=== PATIENT | male | born 1940 | race Caucasian/White ===

== ENCOUNTER → 2016-07-20 | Outpatient (CLI) | payer OTHER ==
[~2016-07-20] MED LIST: ASPI81TA27 PO; DOXA1TAB50 PO; PRAV20TA3 OR
[2016-07-20 09:26] LABS: Urine RBC None Seen /hpf (0 - 3)
[2016-07-20 09:36] LABS: Basophils # (auto) 0 uL; Basophils % (auto) 0.6 % (0.0-2.0); Eosinophils # (auto) 0.1 uL; Eosinophils % (auto) 2.2 % (0.0-7.0); Lymphocytes # (auto) 0.7 uL; Lymphocytes % (auto) 16.4 % (10.0-50.0); Mean Corpuscular Hemoglobin 30.8 pg (28.0-32.0); Mean Corpuscular Hgb Conc. 31.8 g/dL (32.0-36.0); Mean Corpuscular Volume 96.8 fL (80.0-100.0); Mean Platelet Volume 8.9 fL (7.4-10.4); Monocytes # (auto) 0.4 uL; Monocytes % (auto) 10.2 % (0.0-12.0); Neutrophils # (auto) 2.9 uL; Neutrophils % (auto) 70.6 % (37.0-80.0); Platelet Count (auto) 159 10^3/uL (140-450); Red Cell Distribution Width 13.7 % (11.6-16.0); White Blood Cell 4.2 10^3/uL (4.4-10.8)
[2016-07-20 09:46] LABS: Urine Bilirubin Negative (Negative); Urine Blood Negative /uL (Negative); Urine Color Yellow (Yellow); Urine Glucose Normal (Normal); Urine Ketone Negative (Negative); Urine Nitrite Negative (Negative); Urine Urobilinogen Normal (Negative); Urine pH 7.5 (5.0-8.0)
[2016-07-20 09:55] LABS: Potassium 3.8 mmol/L (3.5-5.1)
[2016-07-20 10:05] LABS: Albumin 3.7 g/dL (3.4-5.0); BUN/Creatinine Ratio 21.1; Bilirubin, Total 0.6 mg/dL (0.2-1.0); Calcium 8.8 mg/dL (8.5-10.1); Total Protein 7.1 g/dL (6.4-8.2)
== END | disposition home or self-care (01) ==
LOC: LAB 08:50
PROVIDERS: ATTEND Internal Medicine
DX: E78.00 Pure hypercholesterolemia, unspecified (principal); I10 Essential (primary) hypertension; N40.0 Benign prostatic hyperplasia without lower urinary tract symptoms; Z00.00 Encounter for general adult medical examination without abnormal findings
CPT/HCPCS: 36415; 80053; 80061; 81001; 82270; 83036; 83615; 84153; 84443; 85025; 85652; 86141

== ENCOUNTER → 2016-12-26 | Outpatient (CLI) | payer OTHER ==
[2016-12-26 12:42] LABS: Albumin 3.7 g/dL (3.4-5.0); BUN/Creatinine Ratio 21.6; Bilirubin, Total 0.4 mg/dL (0.2-1.0); Calcium 8.9 mg/dL (8.5-10.1); Potassium 4.3 mmol/L (3.5-5.1); Total Protein 6.7 g/dL (6.4-8.2)
== END | disposition home or self-care (01) ==
LOC: LAB 11:30
PROVIDERS: ATTEND Internal Medicine
DX: I10 Essential (primary) hypertension (principal); E05.90 Thyrotoxicosis, unspecified without thyrotoxic crisis or storm
CPT/HCPCS: 36415; 80053; 84443

== ENCOUNTER → 2017-03-12 | Outpatient (CLI) | payer OTHER ==
[2017-03-12 09:43] LABS: Basophils # (auto) 0 uL; Basophils % (auto) 0.6 % (0.0-2.0); Eosinophils # (auto) 0.1 uL; Eosinophils % (auto) 2.3 % (0.0-7.0); Hematocrit 41.8 % (41.0-53.0); Lymphocytes # (auto) 0.7 uL; Lymphocytes % (auto) 19.2 % (10.0-50.0); Mean Corpuscular Hemoglobin 33.3 pg (28.0-32.0); Mean Corpuscular Hgb Conc. 33.5 g/dL (32.0-36.0); Mean Corpuscular Volume 99.2 fL (80.0-100.0); Mean Platelet Volume 8.6 fL (6.9-10.8); Monocytes # (auto) 0.4 uL; Monocytes % (auto) 11.2 % (0.0-12.0); Neutrophils # (auto) 2.5 uL; Neutrophils % (auto) 66.7 % (37.0-80.0); Nucleated Red Blood Cells % 0.2 %; Platelet Count (auto) 109 10^3/uL (140-450); Red Cell Distribution Width 13.8 % (11.8-14.3); White Blood Cell 3.7 10^3/uL (4.4-10.8)
[2017-03-12 10:13] LABS: Albumin 3.9 g/dL (3.4-5.0); Bilirubin, Total 0.4 mg/dL (0.2-1.0); Calcium 9.1 mg/dL (8.5-10.1); Potassium 3.6 mmol/L (3.5-5.1); Total Protein 7.3 g/dL (6.4-8.2)
== END | disposition home or self-care (01) ==
LOC: LAB 09:15
PROVIDERS: ATTEND Internal Medicine
DX: I10 Essential (primary) hypertension (principal); E78.2 Mixed hyperlipidemia; E03.9 Hypothyroidism, unspecified
CPT/HCPCS: 36415; 80053; 80061; 84443; 85025

== ENCOUNTER → 2017-04-02 | Outpatient (CLI) | payer OTHER ==
[~2017-04-02] MED LIST changes: +IOHEXOL 350 MG/ML 100ML IJ ONE
== END | disposition home or self-care (01) ==
LOC: LAB 08:55
PROVIDERS: ATTEND Surgery
DX: I73.9 Peripheral vascular disease, unspecified (principal)
CPT/HCPCS: 36415; 82565; 84520; Q9967

== ENCOUNTER → 2017-04-02 | Outpatient (CLI) | payer OTHER ==
[~2017-04-02] MED LIST changes: -IOHEXOL 350 MG/ML 100ML IJ ONE
== END | disposition home or self-care (01) ==
LOC: CT 09:22
PROVIDERS: ATTEND Surgery
DX: I70.0 Atherosclerosis of aorta (principal); I25.10 Atherosclerotic heart disease of native coronary artery without angina pectoris; K55.1 Chronic vascular disorders of intestine; K57.30 Diverticulosis of large intestine without perforation or abscess without bleeding; N28.1 Cyst of kidney, acquired
CPT/HCPCS: 75635; 93925

== ENCOUNTER → 2017-08-29 | Outpatient (CLI) | payer OTHER ==
[2017-08-29 14:01] LABS: INR 0.95 (0.9-1.15); Prothrombin Time 10.4 sec (9.37-12.3)
== END | disposition home or self-care (01) ==
LOC: LAB 13:26
PROVIDERS: ATTEND Urology
DX: N40.0 Benign prostatic hyperplasia without lower urinary tract symptoms (principal)
CPT/HCPCS: 36415; 84520; 85610

== ENCOUNTER 2017-09-05 06:12 | Day surgery (SDC) | payer OTHER ==
[2017-09-02 11:26] LABS: Basophils # (auto) 0.1 uL; Basophils % (auto) 1.5 % (0.0-2.0); Eosinophils # (auto) 0.1 uL; Eosinophils % (auto) 1.8 % (0.0-7.0); Hematocrit 41.9 % (41.0-53.0); Lymphocytes # (auto) 0.6 uL; Lymphocytes % (auto) 15.3 % (10.0-50.0); Mean Corpuscular Hemoglobin 33.1 pg (28.0-32.0); Mean Corpuscular Hgb Conc. 33.5 g/dL (32.0-36.0); Mean Corpuscular Volume 98.9 fL (80.0-100.0); Monocytes # (auto) 0.5 uL; Monocytes % (auto) 13.6 % (0.0-12.0); Neutrophils # (auto) 2.5 uL; Neutrophils % (auto) 67.8 % (37.0-80.0); Nucleated Red Blood Cells % 0.1 %; Platelet Count (auto) 106 10^3/uL (140-450); Red Blood Cells 4.24 10^6/uL (4.5-5.90); Red Cell Distribution Width 14.4 % (11.8-14.3); White Blood Cell 3.7 10^3/uL (4.4-10.8)
[2017-09-02 11:30] LABS: Urine Bacteria NONE SEEN /hpf (None Seen); Urine Blood Negative /uL (Negative); Urine WBC <1 /hpf (0 - 3)
[2017-09-02 11:32] LABS: Albumin 3.9 g/dL (3.4-5.0); BUN/Creatinine Ratio 26.1; Bilirubin, Total 0.5 mg/dL (0.2-1.0); Calcium 8.8 mg/dL (8.5-10.1); Total Protein 7.4 g/dL (6.4-8.2)
[2017-09-02 11:42] LABS: INR 0.96 (0.9-1.15); Partial Thromboplastin Time 24.9 sec (22.64-33.71); Prothrombin Time 10.5 sec (9.37-12.3)
[~2017-09-05] VITALS: Ht 182.9 cm; Wt 77.1 kg
[2017-09-05] MEDS ORDERED: ceFAZolin 1GM/50ML 50 ML IV ONE (06:31)
[2017-09-05] MEDS ORDERED: SUCCINYLCHOLINE CHLORIDE 20 MG/ML 10ML VIAL IV ONE (07:23)
[2017-09-05] MEDS ORDERED: LIDOCAINE 1% HCL (LOCAL ANESTH.) INJ 20ML MDV ONE (07:23)
[2017-09-05] MEDS ORDERED: MIDAZOLAM HCL 1MG/1ML-2 ML VIAL ONE (07:26)
[2017-09-05] MEDS ORDERED: PROPOFOL 10 MG/ML 20 ML IV ONE (07:28)
[2017-09-05] MEDS ORDERED: LIDOCAINE HCL 2% TOP JELLY 5ML TOP ONE (07:30)
[2017-09-05] MEDS ORDERED: fentaNYL CITRATE 100 MCG/2 ML VL ONE (07:48)
[2017-09-05] MEDS ORDERED: ONDANSETRON HCL 4 MG/2 ML VIAL IV ONE (08:00)
[2017-09-05] MEDS ORDERED: NALOXONE HCL 0.4 MG/ML VIAL IV PRN (08:00)
[2017-09-05] MEDS: MORPHINE SULFATE 4 MG/ML SYR/VIAL IV PRN ×2 (08:47→09:14)
[2017-09-05 09:43] VITALS: BP 157/83
== END 2017-09-05 10:02 | disposition home or self-care (01) ==
LOC: SUR 06:12
PROVIDERS: ATTEND Urology
DX: N32.0 Bladder-neck obstruction (principal); M19.90 Unspecified osteoarthritis, unspecified site; J44.9 Chronic obstructive pulmonary disease, unspecified; E78.00 Pure hypercholesterolemia, unspecified; E03.9 Hypothyroidism, unspecified; Z87.891 Personal history of nicotine dependence
CPT/HCPCS: 36415; 52640; 80053; 81001; 85025; 85610; 85730; J0330; J0690; J2001; J2250; J2270; J2704; J3010

== ENCOUNTER → 2017-09-19 | Outpatient (CLI) | payer OTHER | END | disposition home or self-care (01) | LOC: LAB 16:19 | PROVIDERS: ATTEND Urology | DX: R33.9 Retention of urine, unspecified (principal); J44.9 Chronic obstructive pulmonary disease, unspecified; M19.90 Unspecified osteoarthritis, unspecified site; E78.00 Pure hypercholesterolemia, unspecified; I10 Essential (primary) hypertension; Z87.891 Personal history of nicotine dependence | CPT/HCPCS: 87086 ==

== ENCOUNTER → 2017-11-06 | Outpatient (CLI) | payer OTHER ==
[2017-11-06 08:35] LABS: Basophils # (auto) 0 uL; Basophils % (auto) 0.9 % (0.0-2.0); Eosinophils # (auto) 0.2 uL; Eosinophils % (auto) 4.4 % (0.0-7.0); Hematocrit 43.1 % (41.0-53.0); Hemoglobin 14.5 g/dL (13.5-17.5); Lymphocytes # (auto) 0.7 uL; Lymphocytes % (auto) 17.3 % (10.0-50.0); Mean Corpuscular Hgb Conc. 33.7 g/dL (32.0-36.0); Monocytes # (auto) 0.4 uL; Monocytes % (auto) 11.4 % (0.0-12.0); Neutrophils # (auto) 2.6 uL; Nucleated Red Blood Cells % 0.1 %; Platelet Count (auto) 110 10^3/uL (140-450); White Blood Cell 3.9 10^3/uL (4.4-10.8)
[2017-11-06 09:44] LABS: Albumin 3.8 g/dL (3.4-5.0); BUN/Creatinine Ratio 25.3; Bilirubin, Total 0.3 mg/dL (0.2-1.0); Calcium 9.3 mg/dL (8.5-10.1); Total Protein 7.3 g/dL (6.4-8.2)
== END | disposition home or self-care (01) ==
LOC: LAB 08:07
PROVIDERS: ATTEND Internal Medicine
DX: E03.9 Hypothyroidism, unspecified (principal); E78.5 Hyperlipidemia, unspecified; E78.00 Pure hypercholesterolemia, unspecified; J44.9 Chronic obstructive pulmonary disease, unspecified; Z87.891 Personal history of nicotine dependence
CPT/HCPCS: 36415; 80053; 80061; 82270; 84153; 84154; 84443; 85025

== ENCOUNTER → 2018-04-18 | Outpatient (CLI) | payer OTHER, MEDICARE | END | disposition home or self-care (01) | LOC: LAB 12:10 | DX: N39.0 Urinary tract infection, site not specified (principal) | CPT/HCPCS: 87086 ==

== ENCOUNTER → 2018-08-08 | Outpatient (CLI) | payer OTHER ==
[2018-08-08 08:43] LABS: Basophils # (auto) 0 uL; Basophils % (auto) 0.8 % (0.0-2.0); Eosinophils # (auto) 0.1 uL; Eosinophils % (auto) 1.9 % (0.0-7.0); Hemoglobin 14.4 g/dL (13.5-17.5); Lymphocytes # (auto) 0.6 uL; Lymphocytes % (auto) 14.1 % (10.0-50.0); Mean Corpuscular Hemoglobin 32.8 pg (28.0-32.0); Mean Corpuscular Hgb Conc. 33.5 g/dL (32.0-36.0); Mean Corpuscular Volume 97.9 fL (80.0-100.0); Monocytes # (auto) 0.5 uL; Monocytes % (auto) 9.9 % (0.0-12.0); Neutrophils # (auto) 3.4 uL; Neutrophils % (auto) 73.3 % (37.0-80.0); Nucleated Red Blood Cells % 0.1 %; Platelet Count (auto) 106 10^3/uL (140-450); Red Cell Distribution Width 13.9 % (11.8-14.3); White Blood Cell 4.6 10^3/uL (4.4-10.8)
[2018-08-08 09:24] LABS: Potassium 3.9 mmol/L (3.5-5.1)
[2018-08-08 09:41] LABS: Albumin 3.7 g/dL (3.4-5.0); BUN/Creatinine Ratio 30.6; Bilirubin, Total 0.4 mg/dL (0.2-1.0); Calcium 8.8 mg/dL (8.5-10.1); Total Protein 7.1 g/dL (6.4-8.2)
== END | disposition home or self-care (01) ==
LOC: LAB 08:20
PROVIDERS: ATTEND Internal Medicine
DX: D69.6 Thrombocytopenia, unspecified (principal); I70.0 Atherosclerosis of aorta; E03.9 Hypothyroidism, unspecified; J44.9 Chronic obstructive pulmonary disease, unspecified
CPT/HCPCS: 36415; 80053; 84443; 85025

== ENCOUNTER → 2018-09-30 | Outpatient (CLI) | payer OTHER | END | disposition home or self-care (01) | LOC: LAB 15:00 | PROVIDERS: ATTEND Physician Assistant | DX: L57.0 Actinic keratosis (principal) ==

== ENCOUNTER → 2018-11-14 | Outpatient (CLI) | payer OTHER ==
[2018-11-14 09:22] LABS: Basophils # (auto) 0 uL; Basophils % (auto) 1.1 % (0.0-2.0); Eosinophils # (auto) 0.1 uL; Eosinophils % (auto) 3.3 % (0.0-7.0); Hematocrit 42.9 % (41.0-53.0); Hemoglobin 14.5 g/dL (13.5-17.5); Lymphocytes # (auto) 0.6 uL; Lymphocytes % (auto) 19.3 % (10.0-50.0); Mean Corpuscular Hemoglobin 32.9 pg (28.0-32.0); Mean Corpuscular Hgb Conc. 33.8 g/dL (32.0-36.0); Mean Corpuscular Volume 97.2 fL (80.0-100.0); Monocytes # (auto) 0.4 uL; Monocytes % (auto) 10.9 % (0.0-12.0); Neutrophils # (auto) 2.1 uL; Neutrophils % (auto) 65.4 % (37.0-80.0); Nucleated Red Blood Cells % 0.1 %; Platelet Count (auto) 107 10^3/uL (140-450); Red Blood Cells 4.41 10^6/uL (4.5-5.90); Red Cell Distribution Width 14.1 % (11.8-14.3); White Blood Cell 3.3 10^3/uL (4.4-10.8)
[2018-11-14 09:47] LABS: Albumin 3.8 g/dL (3.4-5.0); BUN/Creatinine Ratio 19.7; Calcium 8.9 mg/dL (8.5-10.1)
[2018-11-14 09:51] LABS: Bilirubin, Total 0.5 mg/dL (0.2-1.0)
== END | disposition home or self-care (01) ==
LOC: LAB 09:03
PROVIDERS: ATTEND Internal Medicine
DX: N40.0 Benign prostatic hyperplasia without lower urinary tract symptoms (principal); E03.9 Hypothyroidism, unspecified; E78.5 Hyperlipidemia, unspecified; I70.0 Atherosclerosis of aorta
CPT/HCPCS: 36415; 80053; 80061; 82270; 84153; 84443; 85025

== ENCOUNTER → 2019-03-04 | Outpatient (CLI) | payer OTHER ==
[~2019-03-04] VITALS: Ht 182.9 cm; Wt 74.8 kg
[~2019-03-04] MED LIST changes: +ADENOSINE 63 MG in GIVE UN-DILUTED 0 ML IV STA; +ASPI-404 PO; -ASPI81TA27 PO
== END | disposition home or self-care (01) ==
LOC: XY 09:11
PROVIDERS: ATTEND Internal Medicine
DX: I10 Essential (primary) hypertension (principal); E03.9 Hypothyroidism, unspecified; J44.9 Chronic obstructive pulmonary disease, unspecified; R07.9 Chest pain, unspecified; E78.5 Hyperlipidemia, unspecified
CPT/HCPCS: 78452; 93017; A9500; J0153

== ENCOUNTER → 2019-03-05 | Outpatient (CLI) | payer OTHER ==
[~2019-03-05] MED LIST changes: -ADENOSINE 63 MG in GIVE UN-DILUTED 0 ML IV STA
== END | disposition home or self-care (01) ==
LOC: XYW 08:17
PROVIDERS: ATTEND Internal Medicine
DX: I11.9 Hypertensive heart disease without heart failure (principal); E78.5 Hyperlipidemia, unspecified; E03.9 Hypothyroidism, unspecified
CPT/HCPCS: 93306

== ENCOUNTER → 2019-04-10 | Outpatient (CLI) | payer OTHER | END | disposition home or self-care (01) | LOC: LAB 10:05 | PROVIDERS: ATTEND Internal Medicine | DX: E03.9 Hypothyroidism, unspecified (principal) | CPT/HCPCS: 36415; 84443 ==

== ENCOUNTER 2019-04-29 09:54 | Day surgery (SDC) | payer OTHER ==
[2019-04-28 12:54] LABS: Basophils # (auto) 0 uL; Basophils % (auto) 1.1 % (0.0-2.0); Eosinophils # (auto) 0.1 uL; Eosinophils % (auto) 2.3 % (0.0-7.0); Hematocrit 42.4 % (41.0-53.0); Hemoglobin 14.2 g/dL (13.5-17.5); Lymphocytes # (auto) 0.6 uL; Lymphocytes % (auto) 14.8 % (10.0-50.0); Mean Corpuscular Hemoglobin 32.9 pg (28.0-32.0); Mean Corpuscular Hgb Conc. 33.5 g/dL (32.0-36.0); Mean Corpuscular Volume 98.1 fL (80.0-100.0); Monocytes # (auto) 0.4 uL; Monocytes % (auto) 10.1 % (0.0-12.0); Neutrophils # (auto) 2.9 uL; Neutrophils % (auto) 71.7 % (37.0-80.0); Platelet Count (auto) 91 10^3/uL (140-450); Red Blood Cells 4.32 10^6/uL (4.5-5.90); Red Cell Distribution Width 14.3 % (11.8-14.3); White Blood Cell 4.1 10^3/uL (4.4-10.8)
[2019-04-28 13:09] LABS: INR 0.94 (0.9-1.15); Partial Thromboplastin Time 24.8 sec (23.64-32.05)
[2019-04-28 13:34] LABS: Potassium 4.1 mmol/L (3.5-5.1)
[2019-04-28 13:42] LABS: Albumin 3.9 g/dL (3.4-5.0); BUN/Creatinine Ratio 28.4; Bilirubin, Total 0.4 mg/dL (0.2-1.0); Calcium 9.3 mg/dL (8.5-10.1); Total Protein 7.1 g/dL (6.4-8.2)
[~2019-04-29] VITALS: Ht 182.9 cm; Wt 75.7 kg
[~2019-04-29 09:54] MED LIST changes: +FURO40TA4 PO; +LEVO25TA6 PO; +POTA-180 PO
[2019-04-29] MEDS ORDERED: ANGIOMAX 250 MG VIAL IV ONE (12:10)
[2019-04-29] MEDS ORDERED: fentaNYL CITRATE 100 MCG/2 ML VL ONE (12:10)
[2019-04-29] MEDS ORDERED: MIDAZOLAM HCL 1MG/1ML-2 ML VIAL ONE (12:11)
[2019-04-29] MEDS ORDERED: SODIUM CHL 0.9% 0 ML ONE (12:12)
[2019-04-29] MEDS ORDERED: VERAPAMIL 2.5MG/ML INJ 2ML VIAL IV ONE (12:15)
[2019-04-29] MEDS ORDERED: HEPARIN SODIUM (PORCINE) 5000 UNITS/ML 1ML VIAL ONE (12:17)
== END 2019-04-29 15:05 | disposition home or self-care (01) ==
LOC: CATH 09:54
PROVIDERS: ATTEND Internal Medicine
DX: I25.119 Atherosclerotic heart disease of native coronary artery with unspecified angina pectoris (principal); E78.00 Pure hypercholesterolemia, unspecified; E03.9 Hypothyroidism, unspecified; I10 Essential (primary) hypertension; J44.9 Chronic obstructive pulmonary disease, unspecified; I87.2 Venous insufficiency (chronic) (peripheral); E78.5 Hyperlipidemia, unspecified; Z79.899 Other long term (current) drug therapy; Z87.891 Personal history of nicotine dependence; Z79.82 Long term (current) use of aspirin
CPT/HCPCS: 36415; 80053; 85025; 85610; 85730; 93458; C1769; C1887; J1644; J2250; J3010; J7030; 99152

== ENCOUNTER → 2019-05-22 | Outpatient (CLI) | payer OTHER ==
[2019-05-22 12:25] LABS: Free T4 (Free Thyroxine) 1.08 ng/dL (0.89-1.76); T3 Total 0.84 ng/mL (0.60-1.81)
== END | disposition home or self-care (01) ==
LOC: LAB 11:10
PROVIDERS: ATTEND Physician Assistant
DX: E03.9 Hypothyroidism, unspecified (principal); R53.83 Other fatigue
CPT/HCPCS: 36415; 84403; 84439; 84480

== ENCOUNTER → 2019-07-30 | Outpatient (CLI) | payer OTHER | END | disposition home or self-care (01) | LOC: XY 10:06 | PROVIDERS: ATTEND Internal Medicine | DX: I65.23 Occlusion and stenosis of bilateral carotid arteries (principal); I70.203 Unspecified atherosclerosis of native arteries of extremities, bilateral legs | CPT/HCPCS: 93886; 93925 ==

== ENCOUNTER → 2019-11-05 | Outpatient (CLI) | payer OTHER ==
[2019-11-05 09:03] LABS: Basophils # (auto) 0 10 ^3/uL (0-0.2); Basophils % (auto) 0.8 % (0.0-2.0); Eosinophils # (auto) 0.1 10 ^3/uL (0-0.8); Eosinophils % (auto) 2.6 % (0.0-7.0); Hematocrit 43.3 % (41.0-53.0); Hemoglobin 14.5 g/dL (13.5-17.5); Lymphocytes # (auto) 0.8 10 ^3/uL (0.4-5.4); Lymphocytes % (auto) 20.8 % (10.0-50.0); Mean Corpuscular Hemoglobin 32.9 pg (28.0-32.0); Mean Corpuscular Hgb Conc. 33.5 g/dL (32.0-36.0); Mean Corpuscular Volume 98.2 fL (80.0-100.0); Monocytes # (auto) 0.4 10 ^3/uL (0-1.3); Monocytes % (auto) 10.5 % (0.0-12.0); Neutrophils # (auto) 2.5 10 ^3/uL (1.6-8.6); Neutrophils % (auto) 65.3 % (37.0-80.0); Nucleated Red Blood Cells % 0.1 %; Platelet Count (auto) 102 10^3/uL (140-450); Red Blood Cells 4.41 10^6/uL (4.5-5.90); Red Cell Distribution Width 13.9 % (11.8-14.3); White Blood Cell 3.9 10^3/uL (4.4-10.8)
[2019-11-05 09:39] LABS: Albumin 3.7 g/dL (3.4-5.0); Potassium 3.9 mmol/L (3.5-5.1)
[2019-11-05 09:44] LABS: Free T4 (Free Thyroxine) 1.16 ng/dL (0.89-1.76); Prostate Specific Antigen 2.23 ng/mL (0.0-4.0)
[2019-11-05 09:45] LABS: T3 Total 0.65 ng/mL (0.60-1.81)
[2019-11-05 09:46] LABS: BUN/Creatinine Ratio 25.3; Bilirubin, Total 0.6 mg/dL (0.2-1.0); Calcium 8.9 mg/dL (8.5-10.1); Total Protein 7.2 g/dL (6.4-8.2)
== END | disposition home or self-care (01) ==
LOC: LAB 08:37
PROVIDERS: ATTEND Physician Assistant
DX: I73.9 Peripheral vascular disease, unspecified (principal); I10 Essential (primary) hypertension; J44.9 Chronic obstructive pulmonary disease, unspecified; N40.1 Benign prostatic hyperplasia with lower urinary tract symptoms; E03.9 Hypothyroidism, unspecified
CPT/HCPCS: 36415; 80053; 80061; 84153; 84439; 84443; 84480; 85025

== ENCOUNTER → 2020-04-07 | Outpatient (CLI) | payer OTHER ==
[~2020-04-07] MED LIST changes: -ASPI-404 PO; +ASPI-543 PO
[2020-04-07 10:47] LABS: Basophils # (auto) 0 10 ^3/uL (0-0.2); Basophils % (auto) 0.9 % (0.0-2.0); Eosinophils # (auto) 0.1 10 ^3/uL (0-0.8); Eosinophils % (auto) 1.7 % (0.0-7.0); Hematocrit 44.6 % (41.0-53.0); Hemoglobin 15.2 g/dL (13.5-17.5); Lymphocytes # (auto) 0.5 10 ^3/uL (0.4-5.4); Lymphocytes % (auto) 18.1 % (10.0-50.0); Mean Corpuscular Hemoglobin 33.8 pg (28.0-32.0); Mean Corpuscular Hgb Conc. 34.1 g/dL (32.0-36.0); Mean Corpuscular Volume 99.3 fL (80.0-100.0); Monocytes # (auto) 0.3 10 ^3/uL (0-1.3); Monocytes % (auto) 10.7 % (0.0-12.0); Neutrophils # (auto) 2.1 10 ^3/uL (1.6-8.6); Neutrophils % (auto) 68.6 % (37.0-80.0); Nucleated Red Blood Cells % 0.1 %; Platelet Count (auto) 126 10^3/uL (140-450); Red Blood Cells 4.49 10^6/uL (4.5-5.90); Red Cell Distribution Width 14.4 % (11.8-14.3)
[2020-04-07 10:55] LABS: INR 0.95 (0.9-1.15); Partial Thromboplastin Time 23.4 sec (23.0-31.2)
[2020-04-07 11:05] LABS: Albumin 4.1 g/dL (3.4-5.0); Calcium 9.6 mg/dL (8.5-10.1); Potassium 3.9 mmol/L (3.5-5.1)
[2020-04-07 11:10] LABS: BUN/Creatinine Ratio 27.2; Bilirubin, Total 0.4 mg/dL (0.2-1.0); Total Protein 7.4 g/dL (6.4-8.2)
[2020-04-07 11:22] LABS: % Iron Saturation 29.8 % (20-55)
[2020-04-07 11:24] LABS: Ferritin 31.4 ng/mL (10-322)
[2020-04-07 11:25] LABS: Folate (Folic Acid) > 24.00 ng/mL (5.38-24)
[2020-04-07 13:51] LABS: Hepatitis B Surface Antigen Negative (Negative)
[2020-04-07 13:54] LABS: Hepatitis B Surface Antibody Negative
[2020-04-07 13:57] LABS: Hepatitis C Antibody Negative (Negative)
== END | disposition home or self-care (01) ==
LOC: LAB 10:10
PROVIDERS: ATTEND Internal Medicine
DX: D69.6 Thrombocytopenia, unspecified (principal)
CPT/HCPCS: 36415; 80053; 82607; 82728; 82746; 83540; 83550; 83615; 84311; 85025; 85610; 85613; 85670; 85705; 85730; 85732; 86038; 86706; 86803; 87340

== ENCOUNTER → 2020-08-19 | Outpatient (CLI) | payer OTHER ==
[2020-08-19 08:50] LABS: Basophils # (auto) 0 10 ^3/uL (0-0.2); Eosinophils # (auto) 0.2 10 ^3/uL (0-0.8); Eosinophils % (auto) 3.4 % (0.0-7.0); Hematocrit 40.5 % (41.0-53.0); Hemoglobin 13.7 g/dL (13.5-17.5); Lymphocytes # (auto) 0.7 10 ^3/uL (0.4-5.4); Lymphocytes % (auto) 14.3 % (10.0-50.0); Mean Corpuscular Hemoglobin 33.3 pg (28.0-32.0); Mean Corpuscular Hgb Conc. 33.9 g/dL (32.0-36.0); Mean Corpuscular Volume 98.2 fL (80.0-100.0); Monocytes # (auto) 0.5 10 ^3/uL (0-1.3); Monocytes % (auto) 10.6 % (0.0-12.0); Neutrophils # (auto) 3.2 10 ^3/uL (1.6-8.6); Neutrophils % (auto) 70.7 % (37.0-80.0); Nucleated Red Blood Cells % 0.1 %; Red Blood Cells 4.12 10^6/uL (4.5-5.90); White Blood Cell 4.6 10^3/uL (4.4-10.8)
[2020-08-19 09:17] LABS: Platelet Count (auto) 116 10^3/uL (140-450)
[2020-08-19 09:28] LABS: Albumin 3.4 g/dL (3.4-5.0); Bilirubin, Total 0.4 mg/dL (0.2-1.0); Calcium 9.5 mg/dL (8.5-10.1); Total Protein 7.2 g/dL (6.4-8.2)
== END | disposition home or self-care (01) ==
LOC: LAB 08:09
PROVIDERS: ATTEND Physician Assistant
DX: N40.1 Benign prostatic hyperplasia with lower urinary tract symptoms (principal); I73.9 Peripheral vascular disease, unspecified; D69.6 Thrombocytopenia, unspecified; E03.9 Hypothyroidism, unspecified
CPT/HCPCS: 36415; 80053; 80061; 84153; 84443; 85025

== ENCOUNTER 2020-09-12 10:01 | Emergency (ER) | payer OTHER ==
[~2020-09-12] VITALS: Ht 182.9 cm; Wt 77.1 kg
[2020-09-12] MEDS ORDERED: SODIUM CHLORIDE 0.9% 1,000 ML IV ONE (10:30)
[2020-09-12 10:36] LABS: Basophils # (auto) 0 10 ^3/uL (0-0.2); Basophils % (auto) 0.1 % (0.0-2.0); Eosinophils # (auto) 0 10 ^3/uL (0-0.8); Hematocrit 40.9 % (41.0-53.0); Hemoglobin 13.9 g/dL (13.5-17.5); Lymphocytes # (auto) 0.5 10 ^3/uL (0.4-5.4); Lymphocytes % (auto) 8.2 % (10.0-50.0); Mean Corpuscular Hemoglobin 33.3 pg (28.0-32.0); Mean Corpuscular Hgb Conc. 33.9 g/dL (32.0-36.0); Mean Corpuscular Volume 98.2 fL (80.0-100.0); Monocytes # (auto) 0.7 10 ^3/uL (0-1.3); Monocytes % (auto) 12.1 % (0.0-12.0); Neutrophils # (auto) 4.9 10 ^3/uL (1.6-8.6); Neutrophils % (auto) 79.6 % (37.0-80.0); Nucleated Red Blood Cells % 0.1 %; Platelet Count (auto) 107 10^3/uL (140-450); Red Blood Cells 4.17 10^6/uL (4.5-5.90); Red Cell Distribution Width 13.7 % (11.8-14.3); White Blood Cell 6.1 10^3/uL (4.4-10.8)
[2020-09-12 11:09] LABS: Urine WBC None Seen /hpf (0 - 3)
[2020-09-12 11:31] LABS: Urine Bacteria FEW /hpf (None Seen); Urine Blood Negative /uL (Negative); Urine Mucus FEW (None Seen); Urine Specific Gravity 1.011 (1.001-1.035)
[2020-09-12 11:35] VITALS: BP 168/121
[2020-09-12 12:04] LABS: Albumin 3.6 g/dL (3.4-5.0); Anion Gap 8 (5-15); Blood Urea Nitrogen 27 mg/dL (7-18); Calcium 8.9 mg/dL (8.5-10.1); Carbon Dioxide 30 mmol/L (21-32); Chloride 102 mmol/L (98-107); Glucose 93 mg/dL (74-106); Lipase 63 U/L (73-393); Potassium 4.5 mmol/L (3.5-5.1); Sodium 140 mmol/L (136-145)
[2020-09-12 12:10] LABS: Alanine Aminotransferase 22 U/L (16-61); Alkaline Phosphatase 46 U/L (45-117); Aspartate Aminotransferase 18 U/L (15-37); BUN/Creatinine Ratio 38.6; Bilirubin, Total 0.3 mg/dL (0.2-1.0); GFR African American 139 mL/min; GFR Non-African American 115 mL/min
== END 2020-09-12 12:25 | disposition home or self-care (01) ==
LOC: ER 10:01
DX: R10.32 Left lower quadrant pain (principal); E78.5 Hyperlipidemia, unspecified; Z90.49 Acquired absence of other specified parts of digestive tract; Z79.82 Long term (current) use of aspirin; Z79.899 Other long term (current) drug therapy
CPT/HCPCS: 36415; 74176; 80053; 81001; 83690; 84484; 85025; 93005

== ENCOUNTER → 2020-09-28 | Outpatient (CLI) | payer OTHER ==
[2020-09-28 12:09] LABS: Basophils # (auto) 0 10 ^3/uL (0-0.2); Basophils % (auto) 0.7 % (0.0-2.0); Eosinophils # (auto) 0.1 10 ^3/uL (0-0.8); Eosinophils % (auto) 1.7 % (0.0-7.0); Hematocrit 43.7 % (41.0-53.0); Hemoglobin 14.7 g/dL (13.5-17.5); Lymphocytes # (auto) 0.6 10 ^3/uL (0.4-5.4); Lymphocytes % (auto) 12.2 % (10.0-50.0); Mean Corpuscular Hemoglobin 33.2 pg (28.0-32.0); Mean Corpuscular Hgb Conc. 33.6 g/dL (32.0-36.0); Mean Corpuscular Volume 98.8 fL (80.0-100.0); Monocytes # (auto) 0.6 10 ^3/uL (0-1.3); Monocytes % (auto) 12.1 % (0.0-12.0); Neutrophils # (auto) 3.6 10 ^3/uL (1.6-8.6); Neutrophils % (auto) 73.3 % (37.0-80.0); Nucleated Red Blood Cells % 0.1 %; Platelet Count (auto) 88 10^3/uL (140-450); Red Blood Cells 4.42 10^6/uL (4.5-5.90); Red Cell Distribution Width 14.5 % (11.8-14.3); White Blood Cell 4.9 10^3/uL (4.4-10.8)
[2020-09-28 12:50] LABS: Albumin 3.5 g/dL (3.4-5.0); Calcium 9.2 mg/dL (8.5-10.1); Potassium 4.5 mmol/L (3.5-5.1)
[2020-09-28 12:55] LABS: BUN/Creatinine Ratio 30.8; Bilirubin, Total 0.5 mg/dL (0.2-1.0); Total Protein 6.8 g/dL (6.4-8.2)
== END | disposition home or self-care (01) ==
LOC: LAB 11:55
PROVIDERS: ATTEND Internal Medicine
DX: D69.6 Thrombocytopenia, unspecified (principal)
CPT/HCPCS: 36415; 80053; 82274; 83615; 85025

== ENCOUNTER → 2020-11-29 | Outpatient (CLI) | payer OTHER, MEDICARE | END | disposition home or self-care (01) | LOC: XY 09:41 | PROVIDERS: ATTEND Nurse Practitioner Acute Care | DX: I73.9 Peripheral vascular disease, unspecified (principal) | CPT/HCPCS: 93925 ==

== ENCOUNTER → 2020-12-23 | Outpatient (CLI) | payer OTHER | END | disposition home or self-care (01) | LOC: XYW 10:07 | PROVIDERS: ATTEND Internal Medicine | DX: I35.1 Nonrheumatic aortic (valve) insufficiency (principal); R07.9 Chest pain, unspecified | CPT/HCPCS: 93306 ==

== ENCOUNTER → 2021-02-09 | Outpatient (CLI) | payer OTHER ==
[2021-02-09 10:57] LABS: Basophils # (auto) 0 10 ^3/uL (0-0.2); Eosinophils # (auto) 0.1 10 ^3/uL (0-0.8); Lymphocytes # (auto) 0.7 10 ^3/uL (0.4-5.4); Monocytes # (auto) 0.5 10 ^3/uL (0-1.3); Neutrophils # (auto) 1.9 10 ^3/uL (1.6-8.6); Nucleated Red Blood Cells % 0.1 %; White Blood Cell 3.2 10^3/uL (4.4-10.8)
[2021-02-09 11:00] LABS: Hematocrit 40.5 % (41.0-53.0); Hemoglobin 14.4 g/dL (13.5-17.5); Lymphocytes % (auto) 22.7 % (10.0-50.0); Mean Corpuscular Hemoglobin 34.7 pg (28.0-32.0); Mean Corpuscular Hgb Conc. 35.6 g/dL (32.0-36.0); Mean Corpuscular Volume 97.3 fL (80.0-100.0); Monocytes % (auto) 15.2 % (0.0-12.0); Neutrophils % (auto) 59.1 % (37.0-80.0); Red Blood Cells 4.16 10^6/uL (4.5-5.90)
== END | disposition home or self-care (01) ==
LOC: LAB 10:43
PROVIDERS: ATTEND Internal Medicine
DX: D69.6 Thrombocytopenia, unspecified (principal); E78.5 Hyperlipidemia, unspecified; E30.9 Disorder of puberty, unspecified
CPT/HCPCS: 36415; 84443; 85025

== ENCOUNTER 2021-05-22 10:22 | Inpatient (IN) | payer OTHER ==
[~2021-05-22] VITALS: Ht 182.9 cm; Wt 79.4 kg
[2021-05-22] MEDS ORDERED: SODIUM CHLORIDE 0.9% 500 ML IV ONE (11:15)
[2021-05-22 12:29] LABS: Basophils # (auto) 0 10 ^3/uL (0-0.2); Basophils % (auto) 0.6 % (0.0-2.0); Eosinophils # (auto) 0.1 10 ^3/uL (0-0.8); Hematocrit 40.8 % (41.0-53.0); Hemoglobin 13.4 g/dL (13.5-17.5); Lymphocytes # (auto) 0.5 10 ^3/uL (0.4-5.4); Lymphocytes % (auto) 9.9 % (10.0-50.0); Mean Corpuscular Hemoglobin 32.8 pg (28.0-32.0); Mean Corpuscular Hgb Conc. 32.9 g/dL (32.0-36.0); Mean Corpuscular Volume 99.5 fL (80.0-100.0); Monocytes # (auto) 0.7 10 ^3/uL (0-1.3); Monocytes % (auto) 14.2 % (0.0-12.0); Neutrophils # (auto) 3.8 10 ^3/uL (1.6-8.6); Neutrophils % (auto) 74.3 % (37.0-80.0); Nucleated Red Blood Cells % 0.1 %; Red Cell Distribution Width 13.9 % (11.8-14.3); White Blood Cell 5.1 10^3/uL (4.4-10.8)
[2021-05-22 12:46] LABS: Albumin 3.5 g/dL (3.4-5.0); Potassium 4.7 mmol/L (3.5-5.1)
[2021-05-22 12:50] LABS: BUN/Creatinine Ratio 31.1; Bilirubin, Total 0.5 mg/dL (0.2-1.0); Total Protein 7.5 g/dL (6.4-8.2)
[2021-05-22] MEDS ORDERED: CLINDAMYCIN 600MG IV 50 ML IV ONE (13:45)
[2021-05-22] MEDS ORDERED: MORPHINE SULFATE INJECTION 2 MG/ML SYRG IV PRN ×3 (16:15→21:15)
[2021-05-22] MEDS ORDERED: NITROGLYCERIN 0.4 MG SL TAB SL PRN ×2 (16:15→21:15)
[2021-05-22 17:34] LABS: Cholesterol 135 mg/dL (< 200); HDL Cholesterol 60 mg/dL (40-59); LDL Cholesterol 66 mg/dL (< 100); Triglycerides 70 mg/dL (< 150)
[2021-05-22] MEDS ORDERED: hydrALAZINE HCL 20 MG/ML VL IV SCH (18:00)
[2021-05-22] MEDS ORDERED: hydrALAZINE HCL 20 MG/ML VL IV PRN ×2 (18:15→21:15)
[2021-05-22] MEDS ORDERED: MORPHINE SULFATE INJECTION 2 MG/ML SYRG IV ONE (19:15)
[2021-05-22] MEDS ORDERED: ONDANSETRON HCL 4 MG/2 ML VIAL IV ONE (19:15)
[2021-05-22] MEDS ORDERED: DOCUSATE SOD 100 MG CAP PO PRN (21:15)
[2021-05-22] MEDS ORDERED: FAMOTIDINE (10MG/ML) 2ML VL IV ONE (21:15)
[2021-05-22] MEDS ORDERED: ONDANSETRON HCL 4 MG/2 ML VIAL IV PRN (21:15)
[2021-05-22] MEDS ORDERED: HYDROcodone-ACET 5/325MG TAB PO PRN (21:15)
[2021-05-22] MEDS ORDERED: LORazepam 0.5 MG TAB PO PRN (21:15)
[2021-05-22] MEDS ORDERED: ALUM & MAG HYDROX-SIMETH LIQ(MAALOX) 30 ML PO PRN (21:15)
[2021-05-22] MEDS: ACETAMINOPHEN 325 MG TAB PO PRN (22:50)
[2021-05-22] MEDS: TERAZOSIN HCL 5 MG CAP PO SCH (22:50)
[2021-05-22] MEDS: SODIUM CHLORIDE 0.9% 1,000 ML IV SCH (22:51)
[2021-05-22 23:03] LABS: Urine Bacteria NONE SEEN /hpf (None Seen); Urine Blood Negative /uL (Negative); Urine Mucus FEW (None Seen); Urine Specific Gravity 1.018 (1.001-1.035); Urine WBC 1 /hpf (0 - 3)
[2021-05-22] MEDS: CLINDAMYCIN 600MG IV 50 ML IV SCH (23:06)
[2021-05-22] MEDS: ATORVASTATIN 20 MG TAB PO SCH (23:07)
[2021-05-22 23:41] LABS: Amphetamine Screen, Urine NEGATIVE (NEGATIVE); Barbiturate Scree,Urine NEGATIVE (NEGATIVE); Benzodiazephine Screen, Urine NEGATIVE (NEGATIVE); Cannabinoid Screen, Urine NEGATIVE (NEGATIVE); Cocaine Screen, Urine NEGATIVE (NEGATIVE); Opiate Scree,Urine NEGATIVE (NEGATIVE); Phencyclidine Screen, Urine NEGATIVE (NEGATIVE)
[2021-05-23] MEDS: ACETAMINOPHEN 325 MG TAB PO PRN ×2 (05:16→19:02)
[2021-05-23] MEDS: CLINDAMYCIN 600MG IV 50 ML IV SCH ×2 (06:19→14:00)
[2021-05-23] MEDS: LEVOTHYROXINE SODIUM 50 MCG TAB PO SCH (07:06)
[2021-05-23 07:44] LABS: Basophils # (auto) 0 10 ^3/uL (0-0.2); Basophils % (auto) 0.4 % (0.0-2.0); Eosinophils # (auto) 0 10 ^3/uL (0-0.8); Eosinophils % (auto) 0.6 % (0.0-7.0); Hematocrit 38.8 % (41.0-53.0); Hemoglobin 12.7 g/dL (13.5-17.5); Lymphocytes # (auto) 0.6 10 ^3/uL (0.4-5.4); Lymphocytes % (auto) 10.1 % (10.0-50.0); Mean Corpuscular Hemoglobin 32.9 pg (28.0-32.0); Mean Corpuscular Hgb Conc. 32.7 g/dL (32.0-36.0); Mean Corpuscular Volume 100.7 fL (80.0-100.0); Monocytes # (auto) 0.8 10 ^3/uL (0-1.3); Monocytes % (auto) 14.2 % (0.0-12.0); Neutrophils # (auto) 4.2 10 ^3/uL (1.6-8.6); Neutrophils % (auto) 74.7 % (37.0-80.0); Red Blood Cells 3.85 10^6/uL (4.5-5.90); Red Cell Distribution Width 13.7 % (11.8-14.3); White Blood Cell 5.6 10^3/uL (4.4-10.8)
[2021-05-23 07:57] LABS: Potassium 3.9 mmol/L (3.5-5.1)
[2021-05-23 08:15] LABS: BUN/Creatinine Ratio 22.2; Bilirubin, Total 0.5 mg/dL (0.2-1.0); Calcium 8.4 mg/dL (8.5-10.1); Magnesium 2.4 mg/dL (1.6-2.6); Phosphorus 2.7 mg/dL (2.5-4.90); Total Protein 6.3 g/dL (6.4-8.2); Uric Acid 3.6 mg/dL (3.5-7.2)
[2021-05-23] MEDS ORDERED: cefTRIAXone 1GM/50ML D5W 50 ML IV SCH (09:00)
[2021-05-23] MEDS: ASPirin 81 mg TAB PO SCH (10:00)
[2021-05-23] MEDS: FAMOTIDINE (10MG/ML) 2ML VL IV SCH (10:00)
[2021-05-23] MEDS: ENOXAPARIN SOD 40 MG/0.4 ML SYRINGE SC SCH (10:00)
[2021-05-23] MEDS: SODIUM CHLORIDE 0.9% 1,000 ML IV SCH (10:32)
[2021-05-23] MEDS ORDERED: LEVO50TA7 PO (13:31)
[2021-05-23] MEDS ORDERED: MECL-111 PO (13:31)
[2021-05-23] MEDS ORDERED: PRAV20TA3 PO (13:31)
[2021-05-23] MEDS: PIPERACILLIN-TAZOB 3.375GM 100 ML IV SCH ×2 (18:00→23:53)
[2021-05-23] MEDS: ATORVASTATIN 20 MG TAB PO SCH (20:53)
[2021-05-23] MEDS: TERAZOSIN HCL 5 MG CAP PO SCH (20:54)
[2021-05-23 21:00] VITALS: BP 145/77
[2021-05-23 22:00] VITALS: BP 145/77
[2021-05-24] MEDS: ACETAMINOPHEN 325 MG TAB PO PRN (03:22)
[2021-05-24 05:00] VITALS: BP 134/80
[2021-05-24] MEDS: LEVOTHYROXINE SODIUM 50 MCG TAB PO SCH (05:39)
[2021-05-24] MEDS: PIPERACILLIN-TAZOB 3.375GM 100 ML IV SCH ×2 (05:40→12:02)
[2021-05-24 09:00] VITALS: BP 143/77
[2021-05-24] MEDS: ENOXAPARIN SOD 40 MG/0.4 ML SYRINGE SC SCH (09:30)
[2021-05-24] MEDS: FAMOTIDINE (10MG/ML) 2ML VL IV SCH (09:30)
[2021-05-24] MEDS: ASPirin 81 mg TAB PO SCH (09:30)
[2021-05-24 13:00] VITALS: BP 145/73
[2021-05-24] MEDS ORDERED: FUROSEMIDE 40 MG/4 ML VIAL IV ONE (13:30)
[2021-05-24 15:21] VITALS: BP 145/73
== END 2021-05-24 16:00 | disposition home or self-care (01) | DRG 603 ==
LOC: ER 10:22 → TELE 16:03 → TELE-WESTW 05-23 20:28
PROVIDERS: ADMIT Hospitalist; ATTEND Internal Medicine
DX: L03.116 Cellulitis of left lower limb (principal); L97.929 Non-pressure chronic ulcer of unspecified part of left lower leg with unspecified severity; R55 Syncope and collapse; I10 Essential (primary) hypertension; E03.9 Hypothyroidism, unspecified; E78.5 Hyperlipidemia, unspecified; Z20.822 Contact with and (suspected) exposure to COVID-19; S81.802A Unspecified open wound, left lower leg, initial encounter; W18.39XA Other fall on same level, initial encounter; N40.0 Benign prostatic hyperplasia without lower urinary tract symptoms; Z80.1 Family history of malignant neoplasm of trachea, bronchus and lung; Z80.3 Family history of malignant neoplasm of breast; Z80.42 Family history of malignant neoplasm of prostate; Z80.8 Family history of malignant neoplasm of other organs or systems; Z81.8 Family history of other mental and behavioral disorders; Z82.0 Family history of epilepsy and other diseases of the nervous system; Z82.3 Family history of stroke; Z82.49 Family history of ischemic heart disease and other diseases of the circulatory system; Z82.5 Family history of asthma and other chronic lower respiratory diseases; Z82.62 Family history of osteoporosis; Z83.3 Family history of diabetes mellitus; Z90.49 Acquired absence of other specified parts of digestive tract; Y93.89 Activity, other specified; Y92.89 Other specified places as the place of occurrence of the external cause; Y99.8 Other external cause status
CPT/HCPCS: 36415; 70450; 73590; 73600; 73620; 73718; 73721; 80053; 80061; 80307; 81001; 82306; 83036; 83735; 83880; 84100; 84443; 84484; 84550; 85025; 85379; 85652; 87040; 87086; 87426; 93005; 93886; 93926; 93971; 96361; 96365; G0378; J2405; J2543; J3490

== ENCOUNTER 2021-05-27 12:33 | Inpatient (IN) | payer OTHER ==
[~2021-05-27] VITALS: Ht 182.9 cm; Wt 84.0 kg
[~2021-05-27 12:33] MED LIST changes: -ASPI-543 PO; -DOXA1TAB50 PO; -FURO40TA4 PO; -LEVO25TA6 PO; +LEVO50TA7 PO; +MECL-111 PO; -POTA-180 PO; -PRAV20TA3 OR; +PRAV20TA3 PO
[2021-05-27] MEDS ORDERED: SODIUM CHLORIDE 0.9% 1,000 ML IV ONE (13:15)
[2021-05-27] MEDS ORDERED: ONDANSETRON HCL 4 MG/2 ML VIAL IV ONE (13:15)
[2021-05-27] MEDS ORDERED: KETOROLAC TROMETH 30 MG/ML 1ML VIAL IV ONE (13:15)
[2021-05-27] MEDS ORDERED: VANCOMYCIN 1GM/250ML 250 ML IV ONE (13:15)
[2021-05-27] MEDS ORDERED: SODIUM CHLORIDE 0.9% 500 ML IV ONE (13:15)
[2021-05-27 15:05] LABS: Basophils # (auto) 0 10 ^3/uL (0-0.2); Basophils % (auto) 0.6 % (0.0-2.0); Eosinophils # (auto) 0.1 10 ^3/uL (0-0.8); Eosinophils % (auto) 1.2 % (0.0-7.0); Hemoglobin 13.3 g/dL (13.5-17.5); Lymphocytes # (auto) 0.5 10 ^3/uL (0.4-5.4); Lymphocytes % (auto) 11.3 % (10.0-50.0); Mean Corpuscular Hemoglobin 33.4 pg (28.0-32.0); Mean Corpuscular Volume 98.4 fL (80.0-100.0); Monocytes # (auto) 0.6 10 ^3/uL (0-1.3); Monocytes % (auto) 13.3 % (0.0-12.0); Neutrophils # (auto) 3.3 10 ^3/uL (1.6-8.6); Neutrophils % (auto) 73.6 % (37.0-80.0); Nucleated Red Blood Cells % 0.2 %; Red Blood Cells 3.97 10^6/uL (4.5-5.90); Red Cell Distribution Width 13.6 % (11.8-14.3); White Blood Cell 4.5 10^3/uL (4.4-10.8)
[2021-05-27 15:25] LABS: Albumin 3.7 g/dL (3.4-5.0); Calcium 9.1 mg/dL (8.5-10.1); Magnesium 3.6 mg/dL (1.6-2.6); Potassium 4.6 mmol/L (3.5-5.1)
[2021-05-27 15:28] LABS: BUN/Creatinine Ratio 26.8; Bilirubin, Total 0.4 mg/dL (0.2-1.0); Total Protein 6.9 g/dL (6.4-8.2)
[2021-05-27 16:51] LABS: INR 1.02 (0.9-1.15); Partial Thromboplastin Time 26.6 sec (23.6-33.0)
[2021-05-27] MEDS ORDERED: DOCUSATE SOD 100 MG CAP PO PRN (22:00)
[2021-05-27] MEDS ORDERED: VANCOMYCIN PER PHARMACY 0 MG IV SCH (22:00)
[2021-05-27] MEDS ORDERED: ONDANSETRON HCL 4 MG/2 ML VIAL IV PRN (22:00)
[2021-05-27] MEDS: SODIUM CHLORIDE 0.9% 1,000 ML IV SCH (23:15)
[2021-05-27] MEDS: ASCORBIC ACID 500 MG TAB PO SCH (23:15)
[2021-05-27] MEDS: HYDROcodone-ACET 5/325MG TAB PO PRN (23:16)
[2021-05-28] MEDS ORDERED: NITROGLYCERIN 0.4 MG SL TAB SL PRN
[2021-05-28] MEDS ORDERED: MORPHINE SULFATE INJECTION 2 MG/ML SYRG IV PRN
[2021-05-28 00:57] VITALS: BP 154/85
[2021-05-28] MEDS ORDERED: VANCOMYCIN 1GM/250ML 250 ML IV ONE (01:15)
[2021-05-28 05:00] VITALS: BP 147/90
[2021-05-28] MEDS: LEVOTHYROXINE SODIUM 50 MCG TAB PO SCH (06:37)
[2021-05-28 07:06] LABS: Basophils # (auto) 0 10 ^3/uL (0-0.2); Basophils % (auto) 0.7 % (0.0-2.0); Eosinophils # (auto) 0.1 10 ^3/uL (0-0.8); Eosinophils % (auto) 3.1 % (0.0-7.0); Hematocrit 35.7 % (41.0-53.0); Lymphocytes # (auto) 0.5 10 ^3/uL (0.4-5.4); Lymphocytes % (auto) 14.3 % (10.0-50.0); Mean Corpuscular Hemoglobin 33.1 pg (28.0-32.0); Mean Corpuscular Hgb Conc. 33.6 g/dL (32.0-36.0); Mean Corpuscular Volume 98.5 fL (80.0-100.0); Monocytes # (auto) 0.5 10 ^3/uL (0-1.3); Monocytes % (auto) 13.7 % (0.0-12.0); Neutrophils # (auto) 2.4 10 ^3/uL (1.6-8.6); Neutrophils % (auto) 68.2 % (37.0-80.0); Nucleated Red Blood Cells % 0.2 %; Red Blood Cells 3.63 10^6/uL (4.5-5.90); Red Cell Distribution Width 13.7 % (11.8-14.3); White Blood Cell 3.6 10^3/uL (4.4-10.8)
[2021-05-28 07:23] LABS: Potassium 4.2 mmol/L (3.5-5.1)
[2021-05-28 07:32] LABS: BUN/Creatinine Ratio 23.3; Bilirubin, Total 0.4 mg/dL (0.2-1.0); Calcium 8.3 mg/dL (8.5-10.1); Total Protein 5.9 g/dL (6.4-8.2)
[2021-05-28] MEDS: HYDROcodone-ACET 5/325MG TAB PO PRN (07:50)
[2021-05-28 09:00] VITALS: BP 158/9
[2021-05-28] MEDS: ENOXAPARIN SOD 40 MG/0.4 ML SYRINGE SC SCH (09:31)
[2021-05-28] MEDS: MULTIPLE VITAMIN TAB PO SCH (09:31)
[2021-05-28] MEDS: FAMOTIDINE (10MG/ML) 2ML VL IV SCH (09:31)
[2021-05-28] MEDS: ZINC SULFATE 220mg CAP or TAB PO SCH (09:32)
[2021-05-28] MEDS: ASCORBIC ACID 500 MG TAB PO SCH ×2 (09:32→22:07)
[2021-05-28 13:00] VITALS: BP 150/94
[2021-05-28] MEDS: SODIUM CHLORIDE 0.9% 1,000 ML IV SCH (14:40)
[2021-05-28] MEDS ORDERED: levoFLOXacin 500MG 100 ML IV ONE (15:15)
[2021-05-28 17:00] VITALS: BP 158/89
[2021-05-28] MEDS: VANCOMYCIN 1GM/250ML 250 ML IV SCH ×2 (17:12→22:07)
[2021-05-28] MEDS: ACETAMINOPHEN 325 MG TAB PO PRN (17:28)
[2021-05-28 22:01] VITALS: BP 159/82
[2021-05-29 05:00] VITALS: BP 162/80
[2021-05-29] MEDS: SODIUM CHLORIDE 0.9% 1,000 ML IV SCH (06:32)
[2021-05-29] MEDS: LEVOTHYROXINE SODIUM 50 MCG TAB PO SCH (06:32)
[2021-05-29 08:12] LABS: Basophils # (auto) 0 10 ^3/uL (0-0.2); Basophils % (auto) 0.6 % (0.0-2.0); Eosinophils # (auto) 0.1 10 ^3/uL (0-0.8); Eosinophils % (auto) 2.3 % (0.0-7.0); Hematocrit 38.8 % (41.0-53.0); Hemoglobin 12.7 g/dL (13.5-17.5); Lymphocytes # (auto) 0.4 10 ^3/uL (0.4-5.4); Lymphocytes % (auto) 11.3 % (10.0-50.0); Mean Corpuscular Hemoglobin 33.4 pg (28.0-32.0); Mean Corpuscular Hgb Conc. 32.7 g/dL (32.0-36.0); Mean Corpuscular Volume 101.9 fL (80.0-100.0); Monocytes # (auto) 0.5 10 ^3/uL (0-1.3); Monocytes % (auto) 13.6 % (0.0-12.0); Neutrophils # (auto) 2.8 10 ^3/uL (1.6-8.6); Neutrophils % (auto) 72.2 % (37.0-80.0); Nucleated Red Blood Cells % 0.4 %; White Blood Cell 3.9 10^3/uL (4.4-10.8)
[2021-05-29 08:22] LABS: Albumin 2.9 g/dL (3.4-5.0); Potassium 3.9 mmol/L (3.5-5.1)
[2021-05-29 08:25] LABS: Bilirubin, Total 0.3 mg/dL (0.2-1.0); Total Protein 5.8 g/dL (6.4-8.2)
[2021-05-29 09:00] VITALS: BP 159/92
[2021-05-29] MEDS: MULTIPLE VITAMIN TAB PO SCH (09:42)
[2021-05-29] MEDS: FAMOTIDINE (10MG/ML) 2ML VL IV SCH (09:42)
[2021-05-29] MEDS: ASCORBIC ACID 500 MG TAB PO SCH ×2 (09:42→22:28)
[2021-05-29] MEDS: ENOXAPARIN SOD 40 MG/0.4 ML SYRINGE SC SCH (09:42)
[2021-05-29] MEDS: ZINC SULFATE 220mg CAP or TAB PO SCH (09:42)
[2021-05-29] MEDS: levoFLOXacin 500MG 100 ML IV SCH (09:43)
[2021-05-29] MEDS ORDERED: VANCOMYCIN 1GM/250ML 250 ML IV SCH ×2 (09:45→16:00)
[2021-05-29] MEDS: VANCOMYCIN 1GM/250ML 250 ML IV SCH (09:45)
[2021-05-29] MEDS: ACETAMINOPHEN 325 MG TAB PO PRN (09:45)
[2021-05-29 13:00] VITALS: BP 149/81
[2021-05-29 17:00] VITALS: BP 159/87
[2021-05-29 22:00] VITALS: BP 156/74
[2021-05-30 05:00] VITALS: BP 148/81
[2021-05-30] MEDS: LEVOTHYROXINE SODIUM 50 MCG TAB PO SCH (06:56)
[2021-05-30 08:00] VITALS: BP 152/76
[2021-05-30 08:03] LABS: Calcium 8.6 mg/dL (8.5-10.1); Potassium 4.1 mmol/L (3.5-5.1)
[2021-05-30 08:06] LABS: BUN/Creatinine Ratio 15.3
[2021-05-30] MEDS: hydrALAZINE HCL 20 MG/ML VL IV PRN (08:54)
[2021-05-30] MEDS: ENOXAPARIN SOD 40 MG/0.4 ML SYRINGE SC SCH (10:00)
[2021-05-30] MEDS: FAMOTIDINE (10MG/ML) 2ML VL IV SCH (10:00)
[2021-05-30] MEDS: ZINC SULFATE 220mg CAP or TAB PO SCH (10:11)
[2021-05-30] MEDS: MULTIPLE VITAMIN TAB PO SCH (10:11)
[2021-05-30] MEDS: ASCORBIC ACID 500 MG TAB PO SCH ×2 (10:11→21:55)
[2021-05-30] MEDS: levoFLOXacin 500MG 100 ML IV SCH (10:12)
[2021-05-30] MEDS ORDERED: VANCOMYCIN 1GM/250ML 250 ML IV SCH (11:00)
[2021-05-30 12:00] VITALS: BP 143/84
[2021-05-30] MEDS: HYDROcodone-ACET 5/325MG TAB PO PRN (12:48)
[2021-05-30] MEDS: SODIUM CHLORIDE 0.9% 1,000 ML IV SCH ×2 (16:40)
[2021-05-30 17:11] VITALS: BP 142/79
[2021-05-30] MEDS: ACETAMINOPHEN 325 MG TAB PO PRN (20:17)
[2021-05-30 22:00] VITALS: BP 136/79
[2021-05-31 05:00] VITALS: BP 129/74
[2021-05-31] MEDS: LEVOTHYROXINE SODIUM 50 MCG TAB PO SCH (05:46)
[2021-05-31 07:38] LABS: Basophils # (auto) 0 10 ^3/uL (0-0.2); Basophils % (auto) 0.8 % (0.0-2.0); Eosinophils # (auto) 0.1 10 ^3/uL (0-0.8); Eosinophils % (auto) 2.2 % (0.0-7.0); Hematocrit 38.1 % (41.0-53.0); Hemoglobin 12.7 g/dL (13.5-17.5); Lymphocytes # (auto) 0.4 10 ^3/uL (0.4-5.4); Lymphocytes % (auto) 11.4 % (10.0-50.0); Mean Corpuscular Hemoglobin 33.2 pg (28.0-32.0); Mean Corpuscular Hgb Conc. 33.5 g/dL (32.0-36.0); Mean Corpuscular Volume 99.3 fL (80.0-100.0); Monocytes # (auto) 0.6 10 ^3/uL (0-1.3); Monocytes % (auto) 14.3 % (0.0-12.0); Neutrophils # (auto) 2.7 10 ^3/uL (1.6-8.6); Neutrophils % (auto) 71.3 % (37.0-80.0); Red Blood Cells 3.83 10^6/uL (4.5-5.90); Red Cell Distribution Width 13.7 % (11.8-14.3); White Blood Cell 3.8 10^3/uL (4.4-10.8)
[2021-05-31 08:00] LABS: Calcium 8.4 mg/dL (8.5-10.1); Potassium 3.6 mmol/L (3.5-5.1)
[2021-05-31 08:03] LABS: Magnesium 2.6 mg/dL (1.6-2.6)
[2021-05-31 09:00] VITALS: BP 155/85
[2021-05-31] MEDS: ASCORBIC ACID 500 MG TAB PO SCH ×2 (09:46→22:29)
[2021-05-31] MEDS: MULTIPLE VITAMIN TAB PO SCH (09:46)
[2021-05-31] MEDS: ZINC SULFATE 220mg CAP or TAB PO SCH (09:46)
[2021-05-31] MEDS: SODIUM CHLORIDE 0.9% 1,000 ML IV SCH (09:47)
[2021-05-31] MEDS: levoFLOXacin 500MG 100 ML IV SCH (09:47)
[2021-05-31] MEDS: ENOXAPARIN SOD 40 MG/0.4 ML SYRINGE SC SCH (09:47)
[2021-05-31] MEDS: hydrALAZINE HCL 20 MG/ML VL IV PRN ×2 (09:48→18:18)
[2021-05-31 13:00] VITALS: BP 136/60
[2021-05-31] MEDS: HYDROcodone-ACET 5/325MG TAB PO PRN (16:57)
[2021-05-31 17:00] VITALS: BP 173/98
[2021-05-31] MEDS ORDERED: CEFTRIAXONE SODIUM 2 GM in D5W 5% 50 ML IV ONE (17:00)
[2021-05-31 22:00] VITALS: BP 137/78
[2021-06-01] MEDS: ACETAMINOPHEN 325 MG TAB PO PRN (00:23)
[2021-06-01] MEDS: LEVOTHYROXINE SODIUM 50 MCG TAB PO SCH (06:28)
[2021-06-01 08:00] VITALS: BP 143/84
[2021-06-01] MEDS: MULTIPLE VITAMIN TAB PO SCH (09:30)
[2021-06-01] MEDS: ENOXAPARIN SOD 40 MG/0.4 ML SYRINGE SC SCH (09:30)
[2021-06-01] MEDS: ASCORBIC ACID 500 MG TAB PO SCH (09:30)
[2021-06-01 13:59] VITALS: BP 173/98
[2021-06-01] MEDS ORDERED: CEFTRIAXONE SODIUM 2 GM in D5W 5% 50 ML IV SCH (22:00)
== END 2021-06-01 15:10 | disposition home health service (06) | DRG 603 ==
LOC: ER 12:33 → OVERFLOW 05-28 00:02 → WEST WING 05-28 00:29
PROVIDERS: ADMIT Nurse Practitioner Family; ATTEND Internal Medicine
DX: L03.116 Cellulitis of left lower limb (principal); I73.9 Peripheral vascular disease, unspecified; I87.2 Venous insufficiency (chronic) (peripheral); I10 Essential (primary) hypertension; E78.5 Hyperlipidemia, unspecified; J44.9 Chronic obstructive pulmonary disease, unspecified; M19.90 Unspecified osteoarthritis, unspecified site; N40.0 Benign prostatic hyperplasia without lower urinary tract symptoms; K57.90 Diverticulosis of intestine, part unspecified, without perforation or abscess without bleeding; E03.9 Hypothyroidism, unspecified; Z20.822 Contact with and (suspected) exposure to COVID-19; Z80.1 Family history of malignant neoplasm of trachea, bronchus and lung; Z80.42 Family history of malignant neoplasm of prostate; Z80.3 Family history of malignant neoplasm of breast; Z82.0 Family history of epilepsy and other diseases of the nervous system; Z81.8 Family history of other mental and behavioral disorders; Z82.49 Family history of ischemic heart disease and other diseases of the circulatory system; Z82.5 Family history of asthma and other chronic lower respiratory diseases; Z82.62 Family history of osteoporosis; Z83.3 Family history of diabetes mellitus; Z82.3 Family history of stroke; Z80.8 Family history of malignant neoplasm of other organs or systems; Z82.61 Family history of arthritis
CPT/HCPCS: 36415; 80048; 80053; 80202; 83605; 83735; 84443; 85025; 85610; 85652; 85730; 87040; 87077; 87081; 87186; 87205; 87426; 93971; 96365; 96375; G0378; J0696; J1885; J1956; J2405; J7060

== ENCOUNTER → 2021-06-21 | Outpatient (CLI) | payer OTHER ==
[2021-06-21 14:46] LABS: BUN/Creatinine Ratio 33.8; Calcium 9.2 mg/dL (8.5-10.1); Potassium 4.4 mmol/L (3.5-5.1)
== END | disposition home or self-care (01) ==
LOC: LAB 13:51
PROVIDERS: ATTEND Internal Medicine
DX: L03.116 Cellulitis of left lower limb (principal)
CPT/HCPCS: 36415; 80048

== ENCOUNTER → 2021-07-07 | Outpatient (CLI) | payer OTHER ==
[2021-07-07 11:05] LABS: Basophils # (auto) 0 10 ^3/uL (0-0.2); Eosinophils # (auto) 0.1 10 ^3/uL (0-0.8); Eosinophils % (auto) 2.8 % (0.0-7.0); Hematocrit 36.6 % (41.0-53.0); Hemoglobin 12.3 g/dL (13.5-17.5); Lymphocytes # (auto) 0.5 10 ^3/uL (0.4-5.4); Lymphocytes % (auto) 11.3 % (10.0-50.0); Mean Corpuscular Hemoglobin 32.2 pg (28.0-32.0); Mean Corpuscular Hgb Conc. 33.6 g/dL (32.0-36.0); Mean Corpuscular Volume 95.9 fL (80.0-100.0); Monocytes # (auto) 0.5 10 ^3/uL (0-1.3); Monocytes % (auto) 13.1 % (0.0-12.0); Neutrophils % (auto) 71.8 % (37.0-80.0); Red Blood Cells 3.82 10^6/uL (4.5-5.90); Red Cell Distribution Width 13.4 % (11.8-14.3); White Blood Cell 4.1 10^3/uL (4.4-10.8)
[2021-07-07 11:43] LABS: BUN/Creatinine Ratio 23.4; Calcium 8.9 mg/dL (8.5-10.1); Potassium 4.1 mmol/L (3.5-5.1)
== END | disposition home or self-care (01) ==
LOC: LAB 09:39
PROVIDERS: ATTEND Internal Medicine
DX: J44.9 Chronic obstructive pulmonary disease, unspecified (principal)
CPT/HCPCS: 36415; 80048; 80061; 82306; 85025

== ENCOUNTER → 2021-08-29 | Outpatient (CLI) | payer OTHER ==
[2021-08-29 10:31] LABS: Basophils # (auto) 0 10 ^3/uL (0-0.2); Eosinophils # (auto) 0.3 10 ^3/uL (0-0.8); Eosinophils % (auto) 5.3 % (0.0-7.0); Hematocrit 36.2 % (41.0-53.0); Hemoglobin 12.2 g/dL (13.5-17.5); Lymphocytes # (auto) 0.6 10 ^3/uL (0.4-5.4); Lymphocytes % (auto) 13.1 % (10.0-50.0); Mean Corpuscular Hemoglobin 31.6 pg (28.0-32.0); Mean Corpuscular Hgb Conc. 33.7 g/dL (32.0-36.0); Mean Corpuscular Volume 93.6 fL (80.0-100.0); Monocytes # (auto) 0.8 10 ^3/uL (0-1.3); Monocytes % (auto) 15.9 % (0.0-12.0); Neutrophils # (auto) 3.2 10 ^3/uL (1.6-8.6); Neutrophils % (auto) 64.7 % (37.0-80.0); Nucleated Red Blood Cells % 0.1 %; Red Blood Cells 3.87 10^6/uL (4.5-5.90); Red Cell Distribution Width 13.4 % (11.8-14.3); White Blood Cell 4.9 10^3/uL (4.4-10.8)
[2021-08-29 11:32] LABS: Potassium 4.2 mmol/L (3.5-5.1)
[2021-08-29 11:54] LABS: Albumin 3.4 g/dL (3.4-5.0); BUN/Creatinine Ratio 27.1; Bilirubin, Total 0.4 mg/dL (0.2-1.0); Calcium 9.3 mg/dL (8.5-10.1); Total Protein 6.8 g/dL (6.4-8.2)
== END | disposition home or self-care (01) ==
LOC: LAB 09:35
PROVIDERS: ATTEND Internal Medicine
DX: D69.6 Thrombocytopenia, unspecified (principal)
CPT/HCPCS: 36415; 80053; 83615; 85025

== ENCOUNTER → 2021-09-07 | Outpatient (CLI) | payer OTHER | END | disposition home or self-care (01) | LOC: LAB 08:57 | PROVIDERS: ATTEND Internal Medicine | DX: I73.9 Peripheral vascular disease, unspecified (principal); J44.9 Chronic obstructive pulmonary disease, unspecified | CPT/HCPCS: 36415; 83036; 83880 ==

== ENCOUNTER → 2021-09-19 | Outpatient (CLI) | payer OTHER | END | disposition home or self-care (01) | LOC: XYW 09:56 | PROVIDERS: ATTEND Internal Medicine | DX: I73.9 Peripheral vascular disease, unspecified (principal) | CPT/HCPCS: 93925 ==

== ENCOUNTER → 2021-10-26 | Outpatient (CLI) | payer OTHER ==
[2021-10-26 11:52] LABS: Basophils # (auto) 0 10 ^3/uL (0-0.2); Eosinophils # (auto) 0.2 10 ^3/uL (0-0.8); Eosinophils % (auto) 4.7 % (0.0-7.0); Hematocrit 38.6 % (41.0-53.0); Lymphocytes # (auto) 0.7 10 ^3/uL (0.4-5.4); Lymphocytes % (auto) 14.6 % (10.0-50.0); Mean Corpuscular Hemoglobin 31.1 pg (28.0-32.0); Mean Corpuscular Hgb Conc. 33.8 g/dL (32.0-36.0); Mean Corpuscular Volume 92.1 fL (80.0-100.0); Monocytes # (auto) 0.6 10 ^3/uL (0-1.3); Monocytes % (auto) 13.6 % (0.0-12.0); Neutrophils # (auto) 3.1 10 ^3/uL (1.6-8.6); Neutrophils % (auto) 66.1 % (37.0-80.0); Nucleated Red Blood Cells % 0.1 %; Red Blood Cells 4.19 10^6/uL (4.5-5.90); Red Cell Distribution Width 14.7 % (11.8-14.3); White Blood Cell 4.7 10^3/uL (4.4-10.8)
== END | disposition home or self-care (01) ==
LOC: LAB 11:37
PROVIDERS: ATTEND Internal Medicine
DX: L03.116 Cellulitis of left lower limb (principal)
CPT/HCPCS: 36415; 85025

== ENCOUNTER → 2021-11-23 | Outpatient (CLI) | payer OTHER ==
[2021-11-23 12:50] LABS: Albumin 3.6 g/dL (3.4-5.0); Calcium 9.1 mg/dL (8.5-10.1); Potassium 4.4 mmol/L (3.5-5.1)
[2021-11-23 12:54] LABS: BUN/Creatinine Ratio 24.1; Bilirubin, Total 0.4 mg/dL (0.2-1.0); Total Protein 7.2 g/dL (6.4-8.2)
== END | disposition home or self-care (01) ==
LOC: LAB 12:07
PROVIDERS: ATTEND Internal Medicine
DX: I73.9 Peripheral vascular disease, unspecified (principal); R73.03 Prediabetes; J44.9 Chronic obstructive pulmonary disease, unspecified
CPT/HCPCS: 36415; 80053; 83880

== ENCOUNTER → 2022-01-01 | Outpatient (CLI) | payer OTHER ==
[2022-01-01 13:44] LABS: Basophils # (auto) 0 10 ^3/uL (0-0.2); Basophils % (auto) 0.7 % (0.0-2.0); Eosinophils # (auto) 0.2 10 ^3/uL (0-0.8); Eosinophils % (auto) 3.8 % (0.0-7.0); Hematocrit 38.2 % (41.0-53.0); Hemoglobin 12.5 g/dL (13.5-17.5); Lymphocytes # (auto) 0.8 10 ^3/uL (0.4-5.4); Lymphocytes % (auto) 14.6 % (10.0-50.0); Mean Corpuscular Hemoglobin 30.4 pg (28.0-32.0); Mean Corpuscular Hgb Conc. 32.6 g/dL (32.0-36.0); Mean Corpuscular Volume 93.2 fL (80.0-100.0); Monocytes # (auto) 0.5 10 ^3/uL (0-1.3); Monocytes % (auto) 9.2 % (0.0-12.0); Neutrophils % (auto) 71.7 % (37.0-80.0); Red Cell Distribution Width 15.5 % (11.8-14.3); White Blood Cell 5.6 10^3/uL (4.4-10.8)
[2022-01-01 14:09] LABS: Albumin 3.5 g/dL (3.4-5.0); Calcium 9.3 mg/dL (8.5-10.1); Potassium 4.4 mmol/L (3.5-5.1)
[2022-01-01 14:12] LABS: BUN/Creatinine Ratio 35.2; Bilirubin, Total 0.3 mg/dL (0.2-1.0)
[2022-01-01 14:21] LABS: % Iron Saturation 18.9 % (20-55)
[2022-01-01 14:29] LABS: Ferritin 26.6 ng/mL (10-322)
[2022-01-01 14:30] LABS: Folate (Folic Acid) > 24.00 ng/mL (5.38-24)
== END | disposition home or self-care (01) ==
LOC: LAB 13:22
PROVIDERS: ATTEND Internal Medicine
DX: D69.6 Thrombocytopenia, unspecified (principal)
CPT/HCPCS: 36415; 80053; 82607; 82728; 82746; 83540; 83550; 83615; 85025

== ENCOUNTER → 2022-01-10 | Outpatient (CLI) | payer OTHER ==
[2022-01-10 15:42] LABS: Albumin 3.8 g/dL (3.4-5.0); Calcium 9.3 mg/dL (8.5-10.1); Potassium 4.4 mmol/L (3.5-5.1)
[2022-01-10 15:45] LABS: BUN/Creatinine Ratio 31.3; Bilirubin, Total 0.4 mg/dL (0.2-1.0); Total Protein 7.2 g/dL (6.4-8.2)
== END | disposition home or self-care (01) ==
LOC: LAB 14:58
PROVIDERS: ATTEND Internal Medicine
DX: I50.32 Chronic diastolic (congestive) heart failure (principal); J44.9 Chronic obstructive pulmonary disease, unspecified; R60.0 Localized edema
CPT/HCPCS: 36415; 80053; 83880

== ENCOUNTER → 2022-05-31 | Outpatient (CLI) | payer OTHER ==
[2022-05-31 13:45] LABS: Basophils # (auto) 0 10 ^3/uL (0-0.2); Basophils % (auto) 0.9 % (0.0-2.0); Eosinophils # (auto) 0.1 10 ^3/uL (0-0.8); Eosinophils % (auto) 2.9 % (0.0-7.0); Hematocrit 42.2 % (41.0-53.0); Lymphocytes # (auto) 0.5 10 ^3/uL (0.4-5.4); Lymphocytes % (auto) 10.1 % (10.0-50.0); Mean Corpuscular Hemoglobin 32.2 pg (28.0-32.0); Mean Corpuscular Hgb Conc. 33.2 g/dL (32.0-36.0); Monocytes # (auto) 0.5 10 ^3/uL (0-1.3); Monocytes % (auto) 9.9 % (0.0-12.0); Neutrophils % (auto) 76.2 % (37.0-80.0); Red Blood Cells 4.35 10^6/uL (4.5-5.90); Red Cell Distribution Width 13.8 % (11.8-14.3); White Blood Cell 5.2 10^3/uL (4.4-10.8)
[2022-05-31 14:09] LABS: Albumin 3.7 g/dL (3.4-5.0); Calcium 9.3 mg/dL (8.5-10.1); Potassium 4.5 mmol/L (3.5-5.1)
[2022-05-31 14:12] LABS: BUN/Creatinine Ratio 30.9; Bilirubin, Total 0.4 mg/dL (0.2-1.0); Total Protein 7.5 g/dL (6.4-8.2)
== END | disposition home or self-care (01) ==
LOC: LAB 13:32
PROVIDERS: ATTEND Internal Medicine
DX: I50.32 Chronic diastolic (congestive) heart failure (principal); I87.2 Venous insufficiency (chronic) (peripheral); E78.5 Hyperlipidemia, unspecified
CPT/HCPCS: 36415; 80053; 83880; 84443; 85025

== ENCOUNTER → 2022-07-19 | Outpatient (CLI) | payer OTHER ==
[2022-07-19 12:22] LABS: Basophils # (auto) 0 10 ^3/uL (0-0.2); Basophils % (auto) 0.7 % (0.0-2.0); Eosinophils # (auto) 0.1 10 ^3/uL (0-0.8); Eosinophils % (auto) 2.7 % (0.0-7.0); Hematocrit 43.3 % (41.0-53.0); Hemoglobin 14.3 g/dL (13.5-17.5); Lymphocytes # (auto) 0.6 10 ^3/uL (0.4-5.4); Lymphocytes % (auto) 12.1 % (10.0-50.0); Mean Corpuscular Hemoglobin 32.3 pg (28.0-32.0); Mean Corpuscular Hgb Conc. 32.9 g/dL (32.0-36.0); Mean Corpuscular Volume 98.2 fL (80.0-100.0); Monocytes # (auto) 0.5 10 ^3/uL (0-1.3); Monocytes % (auto) 10.4 % (0.0-12.0); Neutrophils # (auto) 3.7 10 ^3/uL (1.6-8.6); Neutrophils % (auto) 74.1 % (37.0-80.0); Nucleated Red Blood Cells % 0.2 %; Red Blood Cells 4.41 10^6/uL (4.5-5.90); Red Cell Distribution Width 13.3 % (11.8-14.3)
[2022-07-19 13:25] LABS: Albumin 3.9 g/dL (3.4-5.0); Calcium 9.2 mg/dL (8.5-10.1); Potassium 4.6 mmol/L (3.5-5.1)
[2022-07-19 13:28] LABS: % Iron Saturation 28.1 % (20-55)
[2022-07-19 13:30] LABS: BUN/Creatinine Ratio 26.9; Bilirubin, Total 0.4 mg/dL (0.2-1.0); Ferritin 31.2 ng/mL (10-322); Total Protein 7.3 g/dL (6.4-8.2)
[2022-07-19 13:31] LABS: Folate (Folic Acid) 11.8 ng/mL (5.38-24)
== END | disposition home or self-care (01) ==
LOC: LAB 11:38
PROVIDERS: ATTEND Physician Assistant
DX: D69.6 Thrombocytopenia, unspecified (principal)
CPT/HCPCS: 36415; 80053; 82607; 82728; 82746; 83540; 83550; 83615; 85025

== ENCOUNTER → 2022-09-03 | Outpatient (CLI) | payer OTHER ==
[2022-09-03 13:21] LABS: Cholesterol 160 mg/dL (< 200); HDL Cholesterol 74 mg/dL (40-59); LDL Cholesterol 85 mg/dL (< 100); Triglycerides 72 mg/dL (< 150)
== END | disposition home or self-care (01) ==
LOC: LAB 12:36
PROVIDERS: ATTEND Internal Medicine
DX: R73.03 Prediabetes (principal)
CPT/HCPCS: 36415; 80061; 83036

== ENCOUNTER 2022-11-29 09:08 | Inpatient (IN) | payer MEDICARE, OTHER ==
[~2022-11-29] VITALS: Ht 182.9 cm; Wt 85.0 kg
[~2022-11-29 09:08] MED LIST changes: -MECL-111 PO; +MECL-126 PO
[2022-11-29] MEDS ORDERED: APIX5TAB PO (09:31)
[2022-11-29] MEDS ORDERED: cefTRIAXone 1GM/50ML D5W 50 ML IV ONE (09:45)
[2022-11-29] MEDS ORDERED: CLINDAMYCIN 600MG IV 50 ML IV ONE (09:45)
[2022-11-29 10:16] LABS: Basophils # (auto) 0 10 ^3/uL (0-0.2); Basophils % (auto) 0.6 % (0.0-2.0); Eosinophils # (auto) 0.2 10 ^3/uL (0-0.8); Eosinophils % (auto) 3.9 % (0.0-7.0); Hematocrit 37.7 % (41.0-53.0); Hemoglobin 12.6 g/dL (13.5-17.5); Lymphocytes # (auto) 0.6 10 ^3/uL (0.4-5.4); Lymphocytes % (auto) 12.2 % (10.0-50.0); Mean Corpuscular Hemoglobin 32.4 pg (28.0-32.0); Mean Corpuscular Hgb Conc. 33.4 g/dL (32.0-36.0); Monocytes # (auto) 0.5 10 ^3/uL (0-1.3); Monocytes % (auto) 11.5 % (0.0-12.0); Neutrophils # (auto) 3.3 10 ^3/uL (1.6-8.6); Neutrophils % (auto) 71.8 % (37.0-80.0); Nucleated Red Blood Cells % 0.1 %; Red Blood Cells 3.88 10^6/uL (4.5-5.90); Red Cell Distribution Width 14.2 % (11.8-14.3); White Blood Cell 4.6 10^3/uL (4.4-10.8)
[2022-11-29 10:33] LABS: INR 0.98 (0.9-1.15); Partial Thromboplastin Time 28.3 sec (24.6-33.4)
[2022-11-29 10:37] LABS: Albumin 3.7 g/dL (3.4-5.0); Calcium 8.9 mg/dL (8.5-10.1); Potassium 4.1 mmol/L (3.5-5.1)
[2022-11-29 10:40] LABS: BUN/Creatinine Ratio 18.4 (10.0-20.0); Bilirubin, Total 0.4 mg/dL (0.2-1.0); Total Protein 6.6 g/dL (6.4-8.2)
[2022-11-29] MEDS ORDERED: CLINDAMYCIN HCL 150 MG CAP PO ONE (11:00)
[2022-11-29] MEDS ORDERED: ONDANSETRON HCL 4 MG/2 ML VIAL IV PRN (12:45)
[2022-11-29] MEDS ORDERED: MORPHINE SULFATE INJ 2 MG/ml SYRG IV PRN (12:45)
[2022-11-29 12:49] LABS: Cholesterol 120 mg/dL (< 200); HDL Cholesterol 45 mg/dL (40-59); LDL Cholesterol 62 mg/dL (< 100); Triglycerides 63 mg/dL (< 150)
[2022-11-29 13:06] LABS: Urine WBC None Seen /hpf (0 - 3)
[2022-11-29] MEDS ORDERED: IPRATROPIUM BROM 0.5 MG/2.5ML INH SOL NEB PRN (13:15)
[2022-11-29] MEDS ORDERED: ALBUTEROL SULF 2.5 MG/0.5ML(0.5%) NEB SOLN NEB PRN (13:15)
[2022-11-29 13:46] LABS: Urine Bacteria NONE SEEN /hpf (None Seen); Urine Blood Negative /uL (Negative); Urine Specific Gravity 1.011 (1.001-1.035)
[2022-11-29] MEDS ORDERED: CLINDAMYCIN 600MG IV 50 ML IV SCH (14:00)
[2022-11-29] MEDS: CLINDAMYCIN HCL 150 MG CAP PO SCH ×2 (15:40→21:45)
[2022-11-29] MEDS: HYDROcodone-ACET 7.5/325MG TAB PO PRN (18:19)
[2022-11-29 20:59] VITALS: BP 137/68
[2022-11-29] MEDS ORDERED: APIXABAN 5 MG TAB PO SCH (22:00)
[2022-11-29 22:31] VITALS: BP_SYST 134; BP_SYST 136; BP_DIAS 82
[2022-11-30 05:00] VITALS: BP 146/79
[2022-11-30] MEDS: CLINDAMYCIN HCL 150 MG CAP PO SCH ×2 (05:19→13:46)
[2022-11-30 06:27] LABS: Basophils # (auto) 0 10 ^3/uL (0-0.2); Basophils % (auto) 0.4 % (0.0-2.0); Eosinophils # (auto) 0.2 10 ^3/uL (0-0.8); Eosinophils % (auto) 5.3 % (0.0-7.0); Hematocrit 35.7 % (41.0-53.0); Hemoglobin 12.1 g/dL (13.5-17.5); Lymphocytes # (auto) 0.5 10 ^3/uL (0.4-5.4); Mean Corpuscular Hemoglobin 32.8 pg (28.0-32.0); Mean Corpuscular Hgb Conc. 33.8 g/dL (32.0-36.0); Mean Corpuscular Volume 96.9 fL (80.0-100.0); Monocytes # (auto) 0.6 10 ^3/uL (0-1.3); Monocytes % (auto) 12.4 % (0.0-12.0); Neutrophils # (auto) 3.3 10 ^3/uL (1.6-8.6); Neutrophils % (auto) 70.9 % (37.0-80.0); Nucleated Red Blood Cells % 0.5 %; Red Blood Cells 3.69 10^6/uL (4.5-5.90); Red Cell Distribution Width 14.1 % (11.8-14.3); White Blood Cell 4.7 10^3/uL (4.4-10.8)
[2022-11-30 06:28] LABS: Calcium 8.3 mg/dL (8.5-10.1); Potassium 3.9 mmol/L (3.5-5.1)
[2022-11-30 06:34] LABS: Albumin 3.1 g/dL (3.4-5.0); BUN/Creatinine Ratio 23.9 (10.0-20.0); Bilirubin, Total 0.4 mg/dL (0.2-1.0); Total Protein 5.5 g/dL (6.4-8.2)
[2022-11-30 09:00] VITALS: BP 140/73
[2022-11-30] MEDS: LEVOTHYROXINE SODIUM 50 MCG TAB PO SCH (09:30)
[2022-11-30] MEDS: PRAVASTATIN SODIUM 20 MG TAB PO SCH (09:30)
[2022-11-30] MEDS: ENOXAPARIN SOD 40 MG/0.4 ML SYRINGE SC SCH (09:30)
[2022-11-30] MEDS ORDERED: IBUPROFEN 800 MG TAB PO ONE (12:00)
[2022-11-30] MEDS ORDERED: TAMSULOSIN HYDROCHLORIDE 0.4 MG CAP PO ONE (12:00)
[2022-11-30 13:28] VITALS: BP 168/76
[2022-11-30] MEDS ORDERED: LIDOCAINE 2% JELLY 11ml (GLYDO) UR ONE (15:00)
[2022-11-30] MEDS: AMPICILLIN & SULBACTAM SODIUM 3 GM in SODIUM CHL 0.9% 100 ML IV SCH ×2 (15:37→21:19)
[2022-11-30] MEDS ORDERED: LIDOCAINE 2% (LOCAL ANESTH.) PF 5ml SDV ONE (16:52)
[2022-11-30 16:56] VITALS: BP 155/77
[2022-11-30] MEDS: HYDROcodone-ACET 7.5/325MG TAB PO PRN (21:25)
[2022-11-30 22:00] VITALS: BP 145/75
[2022-12-01] MEDS: AMPICILLIN & SULBACTAM SODIUM 3 GM in SODIUM CHL 0.9% 100 ML IV SCH ×4 (03:53→19:20)
[2022-12-01] MEDS: HYDROcodone-ACET 7.5/325MG TAB PO PRN ×3 (03:59→21:14)
[2022-12-01 05:00] VITALS: BP 145/72
[2022-12-01 09:00] VITALS: BP 168/74
[2022-12-01] MEDS: LEVOTHYROXINE SODIUM 50 MCG TAB PO SCH (09:55)
[2022-12-01] MEDS: PRAVASTATIN SODIUM 20 MG TAB PO SCH (09:55)
[2022-12-01] MEDS: ENOXAPARIN SOD 40 MG/0.4 ML SYRINGE SC SCH ×2 (09:55→10:00)
[2022-12-01] MEDS: DOCUSATE SOD 100 MG CAP PO PRN ×2 (10:01→21:14)
[2022-12-01] MEDS ORDERED: IOHEXOL 300 MG/ML 100ML BOTTLE IJ ONE (11:02)
[2022-12-01 13:00] VITALS: BP 167/82
[2022-12-01] MEDS: DAKINS HALF STR 0.25% (NaHypochlorite) 473 ML TOPICAL SOL TOP SCH ×2 (16:17→21:13)
[2022-12-01 17:00] VITALS: BP 148/85
[2022-12-01] MEDS ORDERED: TAMSULOSIN HYDROCHLORIDE 0.4 MG CAP PO SCH (18:00)
[2022-12-01] MEDS: DOXYCYCLINE 100 MG TAB/CAP PO SCH (21:15)
[2022-12-01 22:00] VITALS: BP 126/75
[2022-12-02] MEDS: AMPICILLIN & SULBACTAM SODIUM 3 GM in SODIUM CHL 0.9% 100 ML IV SCH ×4 (02:51→21:02)
[2022-12-02 05:00] VITALS: BP 144/91
[2022-12-02 06:03] LABS: Basophils # (auto) 0 10 ^3/uL (0-0.2); Basophils % (auto) 0.3 % (0.0-2.0); Eosinophils # (auto) 0.3 10 ^3/uL (0-0.8); Eosinophils % (auto) 4.6 % (0.0-7.0); Hematocrit 36.2 % (41.0-53.0); Hemoglobin 12.2 g/dL (13.5-17.5); Lymphocytes # (auto) 0.5 10 ^3/uL (0.4-5.4); Lymphocytes % (auto) 8.5 % (10.0-50.0); Mean Corpuscular Hemoglobin 32.8 pg (28.0-32.0); Mean Corpuscular Hgb Conc. 33.8 g/dL (32.0-36.0); Mean Corpuscular Volume 97.1 fL (80.0-100.0); Monocytes # (auto) 0.8 10 ^3/uL (0-1.3); Monocytes % (auto) 13.8 % (0.0-12.0); Neutrophils # (auto) 4.1 10 ^3/uL (1.6-8.6); Neutrophils % (auto) 72.8 % (37.0-80.0); Nucleated Red Blood Cells % 0.1 %; Red Blood Cells 3.73 10^6/uL (4.5-5.90); Red Cell Distribution Width 14.1 % (11.8-14.3); White Blood Cell 5.7 10^3/uL (4.4-10.8)
[2022-12-02] MEDS: LEVOTHYROXINE SODIUM 50 MCG TAB PO SCH (06:14)
[2022-12-02 09:00] VITALS: BP 177/91
[2022-12-02] MEDS: ENOXAPARIN SOD 40 MG/0.4 ML SYRINGE SC SCH (10:00)
[2022-12-02] MEDS: DOXYCYCLINE 100 MG TAB/CAP PO SCH ×2 (10:32→21:08)
[2022-12-02] MEDS: PRAVASTATIN SODIUM 20 MG TAB PO SCH (10:33)
[2022-12-02] MEDS: DAKINS HALF STR 0.25% (NaHypochlorite) 473 ML TOPICAL SOL TOP SCH ×2 (10:33→21:13)
[2022-12-02] MEDS: HYDROcodone-ACET 7.5/325MG TAB PO PRN ×2 (10:40→21:09)
[2022-12-02 13:00] VITALS: BP 165/87
[2022-12-02] MEDS: DOCUSATE SOD 100 MG CAP PO PRN (14:01)
[2022-12-02 22:00] VITALS: BP 163/74
[2022-12-02 22:30] VITALS: BP 149/88
[2022-12-03] MEDS: AMPICILLIN & SULBACTAM SODIUM 3 GM in SODIUM CHL 0.9% 100 ML IV SCH ×4 (02:35→21:28)
[2022-12-03] MEDS: LEVOTHYROXINE SODIUM 50 MCG TAB PO SCH (06:15)
[2022-12-03 09:00] VITALS: BP 159/81
[2022-12-03] MEDS: DAKINS HALF STR 0.25% (NaHypochlorite) 473 ML TOPICAL SOL TOP SCH ×2 (10:00→21:33)
[2022-12-03] MEDS: ENOXAPARIN SOD 40 MG/0.4 ML SYRINGE SC SCH (10:00)
[2022-12-03] MEDS: DOXYCYCLINE 100 MG TAB/CAP PO SCH ×2 (10:10→21:30)
[2022-12-03] MEDS: PRAVASTATIN SODIUM 20 MG TAB PO SCH (10:10)
[2022-12-03 13:00] VITALS: BP 166/78
[2022-12-03] MEDS ORDERED: LIDOCAINE 2% JELLY 11ml (GLYDO) ONE (14:00)
[2022-12-03] MEDS ORDERED: CIPROFLOXACIN 400MG/200ML 200 ML IV ONE (14:37)
[2022-12-03] MEDS ORDERED: PROPOFOL 10 MG/ML 20 ML IV ONE (14:38)
[2022-12-03] MEDS ORDERED: KETOROLAC TROMETH 30 MG/ML 1ML VIAL ONE (14:39)
[2022-12-03] MEDS ORDERED: fentaNYL CITRATE 100 MCG/2 ML VL ONE (14:39)
[2022-12-03] MEDS ORDERED: DexAMETHasone SOD PHOS 10MG/1ML VIAL INJ ONE (14:39)
[2022-12-03] MEDS ORDERED: ONDANSETRON HCL 4 MG/2 ML VIAL ONE (14:39)
[2022-12-03] MEDS ORDERED: GLYCOPYRROLATE 0.2 MG/ML 1ML VIAL ONE (14:39)
[2022-12-03] MEDS ORDERED: METOPROLOL TARTRATE 1MG/1ML-5ML VIAL IV ONE (14:48)
[2022-12-03] MEDS ORDERED: SODIUM CHLORIDE LOCK 10 ML ONE (15:05)
[2022-12-03] MEDS ORDERED: PHENYLEPHRINE HCL 10 MG/ML VL ONE (15:05)
[2022-12-03] MEDS ORDERED: fentaNYL CITRATE 100 MCG/2 ML VL IV PRN (16:45)
[2022-12-03] MEDS ORDERED: LABETALOL HCL 5 MG/ML 4ML SYRINGE IV PRN (16:45)
[2022-12-03] MEDS ORDERED: hydrALAZINE HCL 20 MG/ML VL IV PRN (16:45)
[2022-12-03] MEDS ORDERED: NALOXONE HCL 0.4 MG/ML VIAL IV PRN (16:45)
[2022-12-03] MEDS ORDERED: ONDANSETRON HCL 4 MG/2 ML VIAL IV PRN (16:45)
[2022-12-03] MEDS ORDERED: ePHEDrine SULFATE 50 MG/ML AMP IV PRN (16:45)
[2022-12-03] MEDS ORDERED: FLUMAZENIL 0.1 MG/ML INJ 10ML MDV IV PRN (16:45)
[2022-12-03] MEDS ORDERED: HYDROmorphone HCL 2 MG/ML VL/or syr IV PRN (16:45)
[2022-12-03] MEDS: HYDROcodone-ACET 7.5/325MG TAB PO PRN (21:30)
[2022-12-03 22:31] VITALS: BP 137/67
[2022-12-04] MEDS: AMPICILLIN & SULBACTAM SODIUM 3 GM in SODIUM CHL 0.9% 100 ML IV SCH ×4 (02:21→23:14)
[2022-12-04 05:00] VITALS: BP 116/74
[2022-12-04] MEDS: LEVOTHYROXINE SODIUM 50 MCG TAB PO SCH (06:53)
[2022-12-04] MEDS: DOXYCYCLINE 100 MG TAB/CAP PO SCH ×2 (08:55→23:14)
[2022-12-04] MEDS: PRAVASTATIN SODIUM 20 MG TAB PO SCH (08:55)
[2022-12-04] MEDS: ENOXAPARIN SOD 40 MG/0.4 ML SYRINGE SC SCH (08:56)
[2022-12-04 08:58] VITALS: BP 134/72
[2022-12-04 13:00] VITALS: BP 97/58
[2022-12-04] MEDS: HYDROcodone-ACET 7.5/325MG TAB PO PRN ×2 (15:14→23:14)
[2022-12-04] MEDS: DAKINS HALF STR 0.25% (NaHypochlorite) 473 ML TOPICAL SOL TOP SCH ×2 (16:40→22:00)
[2022-12-04 17:00] VITALS: BP 105/66
[2022-12-04 20:00] VITALS: BP 147/74
[2022-12-04 22:00] VITALS: BP 147/74
[2022-12-05] MEDS: AMPICILLIN & SULBACTAM SODIUM 3 GM in SODIUM CHL 0.9% 100 ML IV SCH ×3 (03:12→14:19)
[2022-12-05 05:00] VITALS: BP 160/83
[2022-12-05] MEDS: LEVOTHYROXINE SODIUM 50 MCG TAB PO SCH (07:02)
[2022-12-05 08:30] VITALS: BP 162/92
[2022-12-05] MEDS: ENOXAPARIN SOD 40 MG/0.4 ML SYRINGE SC SCH ×2 (10:00→10:11)
[2022-12-05 10:10] VITALS: BP 122/80
[2022-12-05] MEDS: DOXYCYCLINE 100 MG TAB/CAP PO SCH (10:11)
[2022-12-05] MEDS: PRAVASTATIN SODIUM 20 MG TAB PO SCH (10:11)
[2022-12-05] MEDS: DAKINS HALF STR 0.25% (NaHypochlorite) 473 ML TOPICAL SOL TOP SCH (10:26)
[2022-12-05 10:59] LABS: Basophils # (auto) 0 10 ^3/uL (0-0.2); Basophils % (auto) 0.3 % (0.0-2.0); Eosinophils # (auto) 0.3 10 ^3/uL (0-0.8); Eosinophils % (auto) 3.6 % (0.0-7.0); Hematocrit 39.5 % (41.0-53.0); Hemoglobin 12.7 g/dL (13.5-17.5); Lymphocytes # (auto) 0.7 10 ^3/uL (0.4-5.4); Lymphocytes % (auto) 8.8 % (10.0-50.0); Mean Corpuscular Hemoglobin 31.9 pg (28.0-32.0); Mean Corpuscular Hgb Conc. 32.2 g/dL (32.0-36.0); Monocytes # (auto) 0.8 10 ^3/uL (0-1.3); Monocytes % (auto) 10.7 % (0.0-12.0); Neutrophils # (auto) 5.8 10 ^3/uL (1.6-8.6); Neutrophils % (auto) 76.6 % (37.0-80.0); Red Blood Cells 3.99 10^6/uL (4.5-5.90); Red Cell Distribution Width 13.9 % (11.8-14.3); White Blood Cell 7.6 10^3/uL (4.4-10.8)
[2022-12-05 11:15] LABS: Calcium 8.1 mg/dL (8.5-10.1); Potassium 3.6 mmol/L (3.5-5.1)
[2022-12-05 13:00] VITALS: BP 128/80
[2022-12-05 16:30] VITALS: BP 159/70
== END 2022-12-05 18:55 | disposition home or self-care (01) | DRG 982 ==
LOC: ER 09:08 → TELE 12:51 → TELE-WESTW 22:15
PROVIDERS: ADMIT Nurse Practitioner Family; ATTEND Internal Medicine
PROC: 0TBC8ZZ Excision of Bladder Neck, Via Natural or Artificial Opening Endoscopic (ICD-10-PCS; 2022-12-03)
PROC: 04CW0ZZ Extirpation of Matter from Left Foot Artery, Open Approach (ICD-10-PCS; principal; 2022-12-03 14:41)
DX: S80.12XA Contusion of left lower leg, initial encounter (principal); L03.116 Cellulitis of left lower limb; N32.0 Bladder-neck obstruction; N40.1 Benign prostatic hyperplasia with lower urinary tract symptoms; E03.9 Hypothyroidism, unspecified; D64.9 Anemia, unspecified; E78.5 Hyperlipidemia, unspecified; I08.0 Rheumatic disorders of both mitral and aortic valves; I10 Essential (primary) hypertension; I25.10 Atherosclerotic heart disease of native coronary artery without angina pectoris; I73.9 Peripheral vascular disease, unspecified; J44.9 Chronic obstructive pulmonary disease, unspecified; I87.2 Venous insufficiency (chronic) (peripheral); X58.XXXA Exposure to other specified factors, initial encounter; K57.30 Diverticulosis of large intestine without perforation or abscess without bleeding; N28.1 Cyst of kidney, acquired; N32.89 Other specified disorders of bladder; R73.03 Prediabetes; Z80.0 Family history of malignant neoplasm of digestive organs; Z79.01 Long term (current) use of anticoagulants; Z80.1 Family history of malignant neoplasm of trachea, bronchus and lung; Z80.3 Family history of malignant neoplasm of breast; Z80.42 Family history of malignant neoplasm of prostate; Z80.8 Family history of malignant neoplasm of other organs or systems; Z81.8 Family history of other mental and behavioral disorders; Z82.0 Family history of epilepsy and other diseases of the nervous system; Z82.3 Family history of stroke; Z82.49 Family history of ischemic heart disease and other diseases of the circulatory system; Z82.5 Family history of asthma and other chronic lower respiratory diseases; Z83.3 Family history of diabetes mellitus; Z82.62 Family history of osteoporosis; Z90.49 Acquired absence of other specified parts of digestive tract; Y93.89 Activity, other specified; Y92.89 Other specified places as the place of occurrence of the external cause; Y99.8 Other external cause status
CPT/HCPCS: 36415; 36600; 71045; 73590; 74176; 74178; 76775; 76856; 80048; 80053; 80061; 81001; 82805; 83605; 83880; 84443; 84484; 85025; 85379; 85610; 85730; 87040; 87086; 93005; 93306; 93970; 96365; G0378; J0696; J1100; J1885; J2001; J2405; J2704

== ENCOUNTER → 2023-04-26 | Outpatient (CLI) | payer OTHER ==
[~2023-04-26] MED LIST changes: +APIX5TAB PO
[2023-04-26 08:19] LABS: Basophils # (auto) 0 10 ^3/uL (0-0.2); Basophils % (auto) 0.3 % (0.0-2.0); Eosinophils # (auto) 0.1 10 ^3/uL (0-0.8); Eosinophils % (auto) 1.5 % (0.0-7.0); Hemoglobin 14.3 g/dL (13.5-17.5); Lymphocytes # (auto) 0.9 10 ^3/uL (0.4-5.4); Lymphocytes % (auto) 18.4 % (10.0-50.0); Mean Corpuscular Hemoglobin 31.9 pg (28.0-32.0); Mean Corpuscular Hgb Conc. 32.6 g/dL (32.0-36.0); Mean Corpuscular Volume 97.9 fL (80.0-100.0); Monocytes # (auto) 0.6 10 ^3/uL (0-1.3); Monocytes % (auto) 12.6 % (0.0-12.0); Neutrophils # (auto) 3.4 10 ^3/uL (1.6-8.6); Neutrophils % (auto) 67.2 % (37.0-80.0); Nucleated Red Blood Cells % 0.1 %; Red Blood Cells 4.49 10^6/uL (4.5-5.90); Red Cell Distribution Width 15.1 % (11.8-14.3); White Blood Cell 5.1 10^3/uL (4.4-10.8)
[2023-04-26 08:39] LABS: Alanine Aminotransferase 21 U/L (7-40); Alkaline Phosphatase 60 U/L (46-116); Anion Gap 4 (5-15); Aspartate Aminotransferase 18 U/L (13-40); BUN/Creatinine Ratio 27.3 (10.0-20.0); Blood Urea Nitrogen 21 mg/dL (9-23); Calcium 9.7 mg/dL (8.5-10.1); Carbon Dioxide 33 mmol/L (20-30); Chloride 102 mmol/L (98-107); Glucose 87 mg/dL (74-106); Potassium 4.3 mmol/L (3.5-5.1); Sodium 139 mmol/L (136-145)
[2023-04-26 08:40] LABS: Albumin 4.6 g/dL (3.2-4.8); Bilirubin, Total 0.6 mg/dL (0.2-1.0); Total Protein 7.2 g/dL (5.7-8.2)
== END | disposition home or self-care (01) ==
LOC: LAB 08:04
PROVIDERS: ATTEND Internal Medicine
DX: E78.5 Hyperlipidemia, unspecified (principal); D64.9 Anemia, unspecified; E03.9 Hypothyroidism, unspecified
CPT/HCPCS: 36415; 80053; 83036; 85025

== ENCOUNTER 2023-05-23 12:28 | Inpatient (IN) | payer OTHER ==
[~2023-05-23] VITALS: Ht 182.9 cm; Wt 83.4 kg
[2023-05-23 13:46] LABS: Basophils # (auto) 0 10 ^3/uL (0-0.2); Basophils % (auto) 0.1 % (0.0-2.0); Eosinophils # (auto) 0 10 ^3/uL (0-0.8); Hematocrit 43.3 % (41.0-53.0); Hemoglobin 14.5 g/dL (13.5-17.5); Lymphocytes # (auto) 0.4 10 ^3/uL (0.4-5.4); Mean Corpuscular Hemoglobin 33.1 pg (28.0-32.0); Mean Corpuscular Hgb Conc. 33.5 g/dL (32.0-36.0); Mean Corpuscular Volume 98.7 fL (80.0-100.0); Monocytes # (auto) 0.9 10 ^3/uL (0-1.3); Monocytes % (auto) 12.9 % (0.0-12.0); Neutrophils # (auto) 5.4 10 ^3/uL (1.6-8.6); Red Blood Cells 4.39 10^6/uL (4.5-5.90); Red Cell Distribution Width 14.2 % (11.8-14.3); White Blood Cell 6.7 10^3/uL (4.4-10.8)
[2023-05-23 14:01] LABS: INR 1.08 (0.9-1.15); Prothrombin Time 11.3 sec (9.3-11.8)
[2023-05-23 14:03] LABS: Alanine Aminotransferase 63 U/L (7-40); Alkaline Phosphatase 70 U/L (46-116); Anion Gap 10 (5-15); Aspartate Aminotransferase 101 U/L (13-40); BUN/Creatinine Ratio 53.4 (10.0-20.0); Blood Urea Nitrogen 39 mg/dL (9-23); Carbon Dioxide 26 mmol/L (20-30); Chloride 105 mmol/L (98-107); Glucose 87 mg/dL (74-106); Lipase 16 U/L (12-53); Magnesium 2.2 mg/dL (1.6-2.6); Potassium 4.4 mmol/L (3.5-5.1); Sodium 141 mmol/L (136-145)
[2023-05-23 14:04] LABS: Bilirubin, Total 0.8 mg/dL (0.2-1.0); Total Protein 6.2 g/dL (5.7-8.2)
[2023-05-23 14:13] LABS: Creatine Kinase IFCC 1034 U/L (46-171)
[2023-05-23 14:16] VITALS: PULSE 84; RESP 12; O2SAT 90
[2023-05-23] MEDS ORDERED: ASPirin-EC 325mg tab PO ONE (14:30)
[2023-05-23] MEDS ORDERED: SODIUM CHLORIDE 0.9% 1,000 ML IV ONE (14:30)
[2023-05-23 14:44] LABS: Urine Bacteria FEW /hpf (None Seen); Urine Blood 3+ /uL (Negative); Urine Clarity CLOUDY (Clear); Urine Color PINK (Yellow); Urine Protein, UAD 1+ (Negative); Urine Specific Gravity 1.019 (1.001-1.035); Urine Urobilinogen Normal (Negative); Urine WBC 2271 /hpf (0 - 3); Urine WBC Clumps PRESENT /hpf (None Seen)
[2023-05-23] MEDS ORDERED: cefTRIAXone 1GM/50ML D5W 50 ML IV ONE (15:00)
[2023-05-23] MEDS ORDERED: NITROGLYCERIN 0.4 MG SL TAB SL PRN (15:15)
[2023-05-23] MEDS ORDERED: ONDANSETRON HCL 4 MG/2 ML VIAL IV PRN (15:15)
[2023-05-23] MEDS ORDERED: SODIUM CHLORIDE 0.9% 1,000 ML IV SCH (15:15)
[2023-05-23] MEDS ORDERED: MORPHINE SULFATE INJ 2 MG/ml SYRG IV PRN (15:15)
[2023-05-23] MEDS: SODIUM CHLORIDE 0.9% 1,000 ML IV SCH (18:05)
[2023-05-23] MEDS: hydrALAZINE HCL 20 MG/ML VL IV PRN (19:08)
[2023-05-23 20:05] VITALS: PULSE 98; RESP 21; O2SAT 94
[2023-05-23] MEDS: MECLIZINE HCL 25 MG TAB PO SCH (23:28)
[2023-05-24] VITALS (8 sets, daily range): BP systolic 114–141; BP diastolic 60–79; PULSE 74–92; RESP 17–20; TEMP 97.9–98.8; O2SAT 92–97
[2023-05-24 00:23] LABS: Amphetamine Screen, Urine Neg (NEGATIVE)
[2023-05-24 00:24] LABS: Barbiturate Scree,Urine Neg (NEGATIVE); Benzodiazephine Screen, Urine Neg (NEGATIVE); Cannabinoid Screen, Urine Neg (NEGATIVE); Cocaine Screen, Urine Neg (NEGATIVE); Opiate Scree,Urine Neg (NEGATIVE); Phencyclidine Screen, Urine Neg (NEGATIVE)
[2023-05-24 06:09] LABS: Alanine Aminotransferase 43 U/L (7-40); Albumin 3.3 g/dL (3.2-4.8); Alkaline Phosphatase 52 U/L (46-116); Anion Gap 5 (5-15); Aspartate Aminotransferase 58 U/L (13-40); BUN/Creatinine Ratio 31.8 (10.0-20.0); Calcium 7.9 mg/dL (8.7-10.4); Carbon Dioxide 29 mmol/L (20-30); Chloride 108 mmol/L (98-107); Glucose 168 mg/dL (74-106); Potassium 3.5 mmol/L (3.5-5.1); Sodium 142 mmol/L (136-145)
[2023-05-24 06:10] LABS: Basophils # (auto) 0 10 ^3/uL (0-0.2); Basophils % (auto) 0.2 % (0.0-2.0); Bilirubin, Total 0.5 mg/dL (0.2-1.0); Eosinophils # (auto) 0 10 ^3/uL (0-0.8); Eosinophils % (auto) 0.5 % (0.0-7.0); Hematocrit 38.3 % (41.0-53.0); Hemoglobin 12.7 g/dL (13.5-17.5); Lymphocytes # (auto) 0.4 10 ^3/uL (0.4-5.4); Lymphocytes % (auto) 8.6 % (10.0-50.0); Mean Corpuscular Hemoglobin 32.5 pg (28.0-32.0); Mean Corpuscular Hgb Conc. 33.1 g/dL (32.0-36.0); Mean Corpuscular Volume 98.3 fL (80.0-100.0); Monocytes # (auto) 0.8 10 ^3/uL (0-1.3); Neutrophils # (auto) 3.3 10 ^3/uL (1.6-8.6); Neutrophils % (auto) 72.7 % (37.0-80.0); Nucleated Red Blood Cells % 0.1 %; Red Cell Distribution Width 14.4 % (11.8-14.3); Total Protein 5.3 g/dL (5.7-8.2); White Blood Cell 4.5 10^3/uL (4.4-10.8)
[2023-05-24 06:27] LABS: Blood Urea Nitrogen 27 mg/dL (9-23)
[2023-05-24] MEDS: LEVOTHYROXINE SODIUM 50 MCG TAB PO SCH (06:34)
[2023-05-24] MEDS: MECLIZINE HCL 25 MG TAB PO SCH ×3 (06:35→21:53)
[2023-05-24] MEDS: SODIUM CHLORIDE 0.9% 1,000 ML IV SCH (06:50)
[2023-05-24] MEDS: cefTRIAXone 1GM/50ML D5W 50 ML IV SCH (08:42)
[2023-05-24] MEDS: ATORVASTATIN 20 MG TAB PO SCH (21:53)
[2023-05-25] VITALS (7 sets, daily range): BP systolic 103–136; BP diastolic 56–98; PULSE 62–96; RESP 18–20; TEMP 97.2–98.3; O2SAT 92–100
[2023-05-25] MEDS: MECLIZINE HCL 25 MG TAB PO SCH ×3 (06:12→22:06)
[2023-05-25] MEDS: LEVOTHYROXINE SODIUM 50 MCG TAB PO SCH (06:12)
[2023-05-25 07:01] LABS: Hematocrit 39.4 % (41.0-53.0); Hemoglobin 13.1 g/dL (13.5-17.5); Mean Corpuscular Hemoglobin 32.3 pg (28.0-32.0); Mean Corpuscular Hgb Conc. 33.1 g/dL (32.0-36.0); Mean Corpuscular Volume 97.7 fL (80.0-100.0); Red Blood Cells 4.04 10^6/uL (4.5-5.90); Red Cell Distribution Width 14.4 % (11.8-14.3); White Blood Cell 2.5 10^3/uL (4.4-10.8)
[2023-05-25 07:08] LABS: Blast Cells 0; Metamyelocytes % 0; Myelocytes % 0; Promyelocytes % 0; Reactive Lymphocytes 0
[2023-05-25 07:11] LABS: Chloride 105 mmol/L (98-107); Potassium 3.7 mmol/L (3.5-5.1); Sodium 141 mmol/L (136-145)
[2023-05-25 07:12] LABS: Anion Gap 6 (5-15); Calcium 8.7 mg/dL (8.7-10.4); Carbon Dioxide 30 mmol/L (20-30)
[2023-05-25 07:17] LABS: Blood Urea Nitrogen 21 mg/dL (9-23); Glucose 96 mg/dL (74-106)
[2023-05-25 09:16] LABS: Band Neutrophils % (manual) 2; Basophils % (manual) 1 (0.0-2.0); Eosinophils % (manual) 3 (0-7); Lymphocytes % (manual) 24 (10.0-50.0); Monocytes % (manual) 23 (0-12)
[2023-05-25 09:17] LABS: Platelet Estimate Decreased; Toxic Granulation Slight
[2023-05-25] MEDS: CLOPIDOGREL BISULFATE 75 MG TAB PO SCH (10:03)
[2023-05-25] MEDS: cefTRIAXone 1GM/50ML D5W 50 ML IV SCH (10:03)
[2023-05-25] MEDS ORDERED: IOHEXOL 350 MG/ML 100ML IJ ONE (11:12)
[2023-05-25] MEDS: SODIUM CHLORIDE 0.9% 1,000 ML IV SCH (16:00)
[2023-05-25] MEDS: ATORVASTATIN 20 MG TAB PO SCH (22:06)
[2023-05-26] VITALS (7 sets, daily range): BP systolic 142–180; BP diastolic 68–98; PULSE 69–93; RESP 16–22; TEMP 97.4–98.1; O2SAT 69–98
[2023-05-26] MEDS: hydrALAZINE HCL 20 MG/ML VL IV PRN ×2 (06:06→21:24)
[2023-05-26] MEDS: MECLIZINE HCL 25 MG TAB PO SCH ×3 (06:07→22:00)
[2023-05-26] MEDS: LEVOTHYROXINE SODIUM 50 MCG TAB PO SCH (06:07)
[2023-05-26] MEDS: SODIUM CHLORIDE 0.9% 1,000 ML IV SCH (10:05)
[2023-05-26] MEDS: cefTRIAXone 1GM/50ML D5W 50 ML IV SCH (10:05)
[2023-05-26] MEDS: CLOPIDOGREL BISULFATE 75 MG TAB PO SCH (10:11)
[2023-05-26] MEDS: ACETAMINOPHEN 325 MG TAB PO PRN (12:13)
[2023-05-26] MEDS: CEFEPIME 1GM/ 50ML 50 ML IV SCH ×2 (14:12→21:10)
[2023-05-26] MEDS: ATORVASTATIN 20 MG TAB PO SCH (21:10)
[2023-05-27 05:00] VITALS: BP 160/90; PULSE 75; RESP 20; TEMP 97.6; O2SAT 93
[2023-05-27] MEDS: DOCUSATE SOD 100 MG CAP PO PRN ×2 (06:14→08:04)
[2023-05-27] MEDS: CEFEPIME 1GM/ 50ML 50 ML IV SCH ×3 (06:14→21:14)
[2023-05-27] MEDS: hydrALAZINE HCL 20 MG/ML VL IV PRN ×2 (06:14→16:52)
[2023-05-27] MEDS: MECLIZINE HCL 25 MG TAB PO SCH ×3 (06:15→21:14)
[2023-05-27] MEDS: LEVOTHYROXINE SODIUM 50 MCG TAB PO SCH (06:23)
[2023-05-27 07:08] LABS: Basophils # (auto) 0 10 ^3/uL (0-0.2); Basophils % (auto) 0.6 % (0.0-2.0); Eosinophils # (auto) 0.2 10 ^3/uL (0-0.8); Eosinophils % (auto) 4.6 % (0.0-7.0); Hematocrit 39.6 % (41.0-53.0); Lymphocytes # (auto) 0.6 10 ^3/uL (0.4-5.4); Lymphocytes % (auto) 16.6 % (10.0-50.0); Mean Corpuscular Hemoglobin 32.8 pg (28.0-32.0); Mean Corpuscular Volume 99.5 fL (80.0-100.0); Monocytes # (auto) 0.6 10 ^3/uL (0-1.3); Neutrophils # (auto) 2.2 10 ^3/uL (1.6-8.6); Neutrophils % (auto) 61.2 % (37.0-80.0); Nucleated Red Blood Cells % 0.1 %; Red Blood Cells 3.98 10^6/uL (4.5-5.90); Red Cell Distribution Width 14.7 % (11.8-14.3); White Blood Cell 3.6 10^3/uL (4.4-10.8)
[2023-05-27] MEDS: ACETAMINOPHEN 325 MG TAB PO PRN ×4 (08:02→23:49)
[2023-05-27] MEDS: CLOPIDOGREL BISULFATE 75 MG TAB PO SCH (08:04)
[2023-05-27 08:30] VITALS: PULSE 75; PULSE 89; RESP 18; O2SAT 94
[2023-05-27 17:00] VITALS: BP 196/102; PULSE 87; RESP 18; TEMP 97.5; O2SAT 97
[2023-05-27 18:10] VITALS: BP 139/77
[2023-05-27] MEDS ORDERED: IBUPROFEN 600 MG TAB PO ONE (18:15)
[2023-05-27 20:00] VITALS: PULSE 91; RESP 19; O2SAT 95
[2023-05-27 20:38] VITALS: BP 141/78; PULSE 88; RESP 20; TEMP 97.6; O2SAT 20
[2023-05-27] MEDS: ATORVASTATIN 20 MG TAB PO SCH (21:14)
[2023-05-28] MEDS: hydrALAZINE HCL 20 MG/ML VL IV PRN (04:45)
[2023-05-28 05:39] VITALS: BP 176/96; PULSE 79; RESP 20; TEMP 98.1; O2SAT 93
[2023-05-28 06:00] VITALS: BP 141/81; PULSE 89
[2023-05-28] MEDS: LEVOTHYROXINE SODIUM 50 MCG TAB PO SCH (06:29)
[2023-05-28] MEDS: CEFEPIME 1GM/ 50ML 50 ML IV SCH (06:29)
[2023-05-28] MEDS: ACETAMINOPHEN 325 MG TAB PO PRN (06:29)
[2023-05-28] MEDS: MECLIZINE HCL 25 MG TAB PO SCH (06:29)
[2023-05-28 08:00] VITALS: BP 118/85; PULSE 78; PULSE 89; RESP 18; TEMP 97.7; O2SAT 94
[2023-05-28 09:00] VITALS: BP 118/85; PULSE 89; RESP 18; TEMP 97.7; O2SAT 94
[2023-05-28] MEDS: CLOPIDOGREL BISULFATE 75 MG TAB PO SCH (10:43)
== END 2023-05-28 14:45 | DRG 689 ==
LOC: EDBD 12:28 → ER 12:28 → TELE 15:35 → TELE-WESTW 23:36 → WEST WING 05-24 16:46 → TELE-WESTW 05-24 20:49
PROVIDERS: ADMIT Nurse Practitioner Family; ATTEND Internal Medicine
PROC: 05HC33Z Insertion of Infusion Device into Left Basilic Vein, Percutaneous Approach (ICD-10-PCS; principal; 2023-05-26)
PROC: B54NZZA Ultrasonography of Left Upper Extremity Veins, Guidance (ICD-10-PCS; 2023-05-26)
DX: N30.00 Acute cystitis without hematuria (principal); G93.41 Metabolic encephalopathy; I21.A1 Myocardial infarction type 2; M62.82 Rhabdomyolysis; E86.0 Dehydration; R74.01 Elevation of levels of liver transaminase levels; I73.9 Peripheral vascular disease, unspecified; E78.5 Hyperlipidemia, unspecified; E03.9 Hypothyroidism, unspecified; F03.90 Unspecified dementia, unspecified severity, without behavioral disturbance, psychotic disturbance, mood disturbance, and anxiety; B96.5 Pseudomonas (aeruginosa) (mallei) (pseudomallei) as the cause of diseases classified elsewhere; R73.03 Prediabetes; M19.90 Unspecified osteoarthritis, unspecified site; I77.811 Abdominal aortic ectasia; D69.6 Thrombocytopenia, unspecified; S61.402A Unspecified open wound of left hand, initial encounter; S61.401A Unspecified open wound of right hand, initial encounter; H35.30 Unspecified macular degeneration; I10 Essential (primary) hypertension; N40.0 Benign prostatic hyperplasia without lower urinary tract symptoms; W18.39XA Other fall on same level, initial encounter; Z85.51 Personal history of malignant neoplasm of bladder; Z80.0 Family history of malignant neoplasm of digestive organs; Z80.1 Family history of malignant neoplasm of trachea, bronchus and lung; Z80.3 Family history of malignant neoplasm of breast; Z80.42 Family history of malignant neoplasm of prostate; Z80.8 Family history of malignant neoplasm of other organs or systems; Z81.8 Family history of other mental and behavioral disorders; Z82.0 Family history of epilepsy and other diseases of the nervous system; Z82.3 Family history of stroke; Z82.49 Family history of ischemic heart disease and other diseases of the circulatory system; Z82.5 Family history of asthma and other chronic lower respiratory diseases; Z82.62 Family history of osteoporosis; Z83.3 Family history of diabetes mellitus; Y93.89 Activity, other specified; Y92.89 Other specified places as the place of occurrence of the external cause; Y99.8 Other external cause status
CPT/HCPCS: 36415; 70450; 70498; 71045; 80048; 80053; 80307; 81001; 82140; 82550; 83605; 83690; 83735; 83880; 84443; 84484; 85007; 85025; 85027; 85610; 87040; 87086; 87088; 87186; 93005; 93886; 97110; 97116; 97163; 97530; 99291; G0378; J0696

== ENCOUNTER → 2023-08-01 | Outpatient (CLI) | payer OTHER ==
[2023-08-01 07:10] LABS: Urine Bacteria MOD /hpf (None Seen); Urine Blood 1+ /uL (Negative); Urine Clarity CLOUDY (Clear); Urine Color Yellow (Yellow); Urine Mucus FEW (None Seen); Urine Protein, UAD 1+ (Negative); Urine Specific Gravity 1.017 (1.001-1.035); Urine Urobilinogen Normal (Negative); Urine WBC 1580 /hpf (0 - 3); Urine WBC Clumps PRESENT /hpf (None Seen); Urine pH 6.5 (5.0-8.0)
== END | disposition home or self-care (01) ==
LOC: LAB 06:13
PROVIDERS: ATTEND Internal Medicine
DX: N39.0 Urinary tract infection, site not specified (principal)
CPT/HCPCS: 81001; 87086

== ENCOUNTER → 2023-08-29 | Outpatient (CLI) | payer OTHER ==
[2023-08-29 11:09] LABS: Basophils # (auto) 0 10 ^3/uL (0-0.2); Basophils % (auto) 0.4 % (0.0-2.0); Eosinophils # (auto) 0.2 10 ^3/uL (0-0.8); Eosinophils % (auto) 4.3 % (0.0-7.0); Hematocrit 36.7 % (41.0-53.0); Lymphocytes # (auto) 0.6 10 ^3/uL (0.4-5.4); Lymphocytes % (auto) 12.9 % (10.0-50.0); Mean Corpuscular Hemoglobin 31.6 pg (28.0-32.0); Mean Corpuscular Hgb Conc. 32.8 g/dL (32.0-36.0); Mean Corpuscular Volume 96.2 fL (80.0-100.0); Monocytes # (auto) 0.7 10 ^3/uL (0-1.3); Neutrophils # (auto) 3.3 10 ^3/uL (1.6-8.6); Neutrophils % (auto) 68.4 % (37.0-80.0); Red Blood Cells 3.81 10^6/uL (4.5-5.90); Red Cell Distribution Width 13.9 % (11.8-14.3); White Blood Cell 4.8 10^3/uL (4.4-10.8)
[2023-08-29 12:04] LABS: Urine Bacteria NONE SEEN /hpf (None Seen); Urine Blood 1+ /uL (Negative); Urine Clarity CLOUDY (Clear); Urine Protein, UAD 1+ (Negative); Urine Specific Gravity 1.018 (1.001-1.035); Urine Urobilinogen Normal (Negative); Urine WBC 1889 /hpf (0 - 3); Urine WBC Clumps PRESENT /hpf (None Seen); Urine pH 6.5 (5.0-8.0)
[2023-08-29 12:05] LABS: Urine Color Straw (Yellow)
[2023-08-29 12:14] LABS: Alanine Aminotransferase 10 U/L (7-40); Albumin 4.3 g/dL (3.2-4.8); Alkaline Phosphatase 82 U/L (46-116); Anion Gap 3 (5-15); Aspartate Aminotransferase 19 U/L (13-40); BUN/Creatinine Ratio 29.5 (10.0-20.0); Blood Urea Nitrogen 28 mg/dL (9-23); Calcium 9.9 mg/dL (8.5-10.1); Carbon Dioxide 33 mmol/L (20-30); Chloride 103 mmol/L (98-107); Glucose 62 mg/dL (74-106); Potassium 4.4 mmol/L (3.5-5.1); Sodium 139 mmol/L (136-145)
[2023-08-29 12:15] LABS: Bilirubin, Total 0.3 mg/dL (0.2-1.0); Total Protein 6.9 g/dL (5.7-8.2)
== END | disposition home or self-care (01) ==
LOC: LAB 10:43
PROVIDERS: ATTEND Internal Medicine
DX: N39.0 Urinary tract infection, site not specified (principal)
CPT/HCPCS: 36415; 80053; 81001; 85025; 87086; 87088; 87186

== ENCOUNTER → 2023-10-17 | Outpatient (CLI) | payer OTHER ==
[2023-10-17 09:40] LABS: Urine Bacteria None Seen /hpf (None Seen)
[2023-10-17 10:11] LABS: Alanine Aminotransferase 19 U/L (7-40); Albumin 4.4 g/dL (3.2-4.8); Alkaline Phosphatase 69 U/L (46-116); Anion Gap 5 (5-15); Aspartate Aminotransferase 26 U/L (13-40); BUN/Creatinine Ratio 32.9 (10.0-20.0); Blood Urea Nitrogen 25 mg/dL (9-23); Calcium 9.5 mg/dL (8.5-10.1); Carbon Dioxide 32 mmol/L (20-30); Chloride 104 mmol/L (98-107); Cholesterol 210 mg/dL (< 200); Glucose 83 mg/dL (74-106); LDL Cholesterol 144 mg/dL (< 100); Potassium 4.1 mmol/L (3.5-5.1); Sodium 141 mmol/L (136-145); Triglycerides 61 mg/dL (< 150)
[2023-10-17 10:12] LABS: Bilirubin, Total 0.5 mg/dL (0.2-1.0); HDL Cholesterol 56 mg/dL (40-59); Total Protein 7.1 g/dL (5.7-8.2)
[2023-10-17 10:14] LABS: Urine Blood Negative /uL (Negative); Urine Clarity Clear (Clear); Urine Color Light-Yellow (Yellow); Urine Protein, UAD Negative (Negative); Urine Specific Gravity 1.017 (1.001-1.035); Urine Urobilinogen Normal (Negative); Urine WBC 1 /hpf (0 - 3); Urine pH 6.5 (5.0-9.0)
== END | disposition home or self-care (01) ==
LOC: LAB 09:31
PROVIDERS: ATTEND Internal Medicine
DX: I10 Essential (primary) hypertension (principal); J44.9 Chronic obstructive pulmonary disease, unspecified; N39.0 Urinary tract infection, site not specified
CPT/HCPCS: 36415; 80053; 80061; 81001

== ENCOUNTER → 2023-11-15 | Outpatient (CLI) | payer OTHER | END | disposition home or self-care (01) | LOC: LAB 10:00 | PROVIDERS: ATTEND Family Medicine | DX: L57.0 Actinic keratosis (principal); D48.5 Neoplasm of uncertain behavior of skin ==

== ENCOUNTER → 2023-12-10 | Outpatient (CLI) | payer OTHER ==
[2023-12-10 10:44] LABS: Albumin 4.3 g/dL (3.2-4.8); Bilirubin, Direct 0.2 mg/dL (<0.3); Bilirubin, Total 0.4 mg/dL (0.2-1.0)
[2023-12-10 10:45] LABS: Total Protein 6.5 g/dL (5.7-8.2)
== END | disposition home or self-care (01) ==
LOC: LAB 09:50
PROVIDERS: ATTEND Internal Medicine
DX: E72.50 Disorder of glycine metabolism, unspecified (principal)
CPT/HCPCS: 36415; 80076

== ENCOUNTER → 2024-03-27 | Outpatient (CLI) | payer OTHER ==
[2024-03-27 13:41] LABS: Albumin 4.3 g/dL (3.2-4.8); Bilirubin, Direct 0.1 mg/dL (<0.3); Bilirubin, Total 0.4 mg/dL (0.2-1.0); Total Protein 6.6 g/dL (5.7-8.2)
== END | disposition home or self-care (01) ==
LOC: LAB 11:29
PROVIDERS: ATTEND Internal Medicine
DX: E78.5 Hyperlipidemia, unspecified (principal)
CPT/HCPCS: 36415; 80061; 80076

== ENCOUNTER 2024-04-03 22:26 | Inpatient (IN) | payer OTHER ==
[~2024-04-03] VITALS: Ht 182.9 cm; Wt 79.9 kg
[2024-04-04] VITALS (10 sets, daily range): BP systolic 105–158; BP diastolic 60–79; PULSE 66–89; RESP 18–20; TEMP 97.6–98.7; O2SAT 92–98
[2024-04-04] MEDS ORDERED: ACETAMINOPHEN 500 MG TAB PO PRN
[2024-04-04] MEDS ORDERED: hydrALAZINE HCL 20 MG/ML VL IV PRN
[2024-04-04 00:47] LABS: Basophils # (auto) 0 10 ^3/uL (0-0.2); Basophils % (auto) 0.1 % (0.0-2.0); Eosinophils # (auto) 0.1 10 ^3/uL (0-0.8); Eosinophils % (auto) 0.7 % (0.0-7.0); Hematocrit 35.7 % (41.0-53.0); Hemoglobin 12.2 g/dL (13.5-17.5); Lymphocytes # (auto) 0.3 10 ^3/uL (0.4-5.4); Lymphocytes % (auto) 3.5 % (10.0-50.0); Mean Corpuscular Hemoglobin 33.6 pg (28.0-32.0); Mean Corpuscular Hgb Conc. 34.1 g/dL (32.0-36.0); Mean Corpuscular Volume 98.4 fL (80.0-100.0); Monocytes # (auto) 1.1 10 ^3/uL (0-1.3); Monocytes % (auto) 10.7 % (0.0-12.0); Neutrophils # (auto) 8.5 10 ^3/uL (1.6-8.6); Platelet Count (auto) 103 10^3/uL (140-450); Red Blood Cells 3.63 10^6/uL (4.5-5.90); Red Cell Distribution Width 13.5 % (11.8-14.3)
[2024-04-04 01:01] LABS: INR 1.11 (0.9-1.15); Partial Thromboplastin Time 31.3 SEC (24.5-34.5); Prothrombin Time 11.7 sec (9.3-11.8)
[2024-04-04 01:05] LABS: Alanine Aminotransferase 24 U/L (7-40); Albumin 3.7 g/dL (3.2-4.8); Alkaline Phosphatase 67 U/L (46-116); Anion Gap 4 (5-15); Aspartate Aminotransferase 33 U/L (13-40); BUN/Creatinine Ratio 23.6 (10.0-20.0); Bilirubin, Total 0.5 mg/dL (0.2-1.0); Blood Urea Nitrogen 17 mg/dL (9-23); Calcium 8.9 mg/dL (8.7-10.4); Carbon Dioxide 30 mmol/L (20-31); Chloride 105 mmol/L (98-107); Glucose 130 mg/dL (74-106); Potassium 3.8 mmol/L (3.5-5.1); Sodium 139 mmol/L (136-145)
[2024-04-04 05:14] LABS: COVID19 ANTIGEN SOFIA FIA NEGATIVE (NEGATIVE)
[2024-04-04] MEDS ORDERED: AMPICILLIN INJ 1 GM in SODIUM CHL 0.9% 100 ML IV SCH (06:00)
[2024-04-04] MEDS ORDERED: NITROGLYCERIN 0.4 MG SL TAB SL PRN ×2 (06:30)
[2024-04-04] MEDS ORDERED: MORPHINE SULFATE INJ 2 MG/ml SYRG IV PRN ×2 (06:30)
[2024-04-04] MEDS: TAMSULOSIN HYDROCHLORIDE 0.4 MG CAP PO ONE ×3 (06:48→06:49)
[2024-04-04] MEDS: POTASSIUM EFFERVESENT TAB 25 MEQ PO ONE ×2 (06:48→06:49)
[2024-04-04] MEDS: POTASSIUM EFFERVESENT TAB 25 MEQ ONE (06:49)
[2024-04-04] MEDS ORDERED: LEVOTHYROXINE SODIUM 50 MCG TAB PO SCH ×2 (10:00)
[2024-04-04] MEDS: ENOXAPARIN SOD 40 MG/0.4 ML SYRINGE SC SCH (10:00)
[2024-04-04] MEDS ORDERED: PRAVASTATIN SODIUM 20 MG TAB PO SCH ×2 (10:00)
[2024-04-04] MEDS: LEVOTHYROXINE SODIUM 50 MCG TAB PO SCH (11:06)
[2024-04-04] MEDS: AMPICILLIN INJ 1 GM in SODIUM CHL 0.9% 100 ML IV SCH (12:14)
[2024-04-04] MEDS ORDERED: cefTRIAXone 1GM/50ML D5W 50 ML IV ONE (13:50)
[2024-04-04] MEDS: cefTRIAXone 1GM/50ML D5W 50 ML IV ONE (13:58)
[2024-04-04] MEDS: TAMSULOSIN HYDROCHLORIDE 0.4 MG CAP PO SCH (17:46)
[2024-04-04] MEDS ORDERED: TAMSULOSIN HYDROCHLORIDE 0.4 MG CAP PO SCH (18:00)
[2024-04-04] MEDS: PRAVASTATIN SODIUM 20 MG TAB PO SCH (21:35)
[2024-04-04 22:57] LABS: Urine Bacteria None Seen /hpf (None Seen)
[2024-04-04 23:08] LABS: Urine Blood TRACE /uL (Negative); Urine Clarity Turbid (Clear); Urine Color Yellow (Yellow); Urine Mucus FEW (None Seen); Urine Protein, UAD 1+ (Negative); Urine Specific Gravity 1.015 (1.001-1.035); Urine Urobilinogen Normal (Negative); Urine WBC 110 /hpf (0 - 3); Urine pH 6.5 (5.0-9.0)
[2024-04-04 23:22] LABS: Amphetamine Screen, Urine Neg (NEGATIVE); Barbiturate Scree,Urine Neg (NEGATIVE); Benzodiazephine Screen, Urine Neg (NEGATIVE); Cocaine Screen, Urine Neg (NEGATIVE)
[2024-04-04 23:23] LABS: Cannabinoid Screen, Urine Neg (NEGATIVE); Opiate Scree,Urine Neg (NEGATIVE); Phencyclidine Screen, Urine Neg (NEGATIVE)
[2024-04-05] VITALS (8 sets, daily range): BP systolic 0–159; BP diastolic 52–81; PULSE 0–76; RESP 16–18; TEMP 97.9–98.5; O2SAT 90–97
[2024-04-05] MEDS: cefTRIAXone 1GM/50ML D5W 50 ML IV SCH (09:12)
[2024-04-05] MEDS: ACETAMINOPHEN 500 MG TAB PO PRN (17:45)
[2024-04-06] VITALS (8 sets, daily range): BP systolic 113–167; BP diastolic 68–85; PULSE 60–71; RESP 16–18; TEMP 97.5–98.8; O2SAT 90–96
[2024-04-06] MEDS: hydrALAZINE HCL 20 MG/ML VL IV PRN (01:21)
[2024-04-06] MEDS ORDERED: DOCUSATE SOD 100 MG CAP PO PRN ×2 (07:00→09:00)
[2024-04-06 07:36] LABS: Basophils # (auto) 0 10 ^3/uL (0-0.2); Basophils % (auto) 0.2 % (0.0-2.0); Eosinophils # (auto) 0.2 10 ^3/uL (0-0.8); Eosinophils % (auto) 3.9 % (0.0-7.0); Hematocrit 36.2 % (41.0-53.0); Hemoglobin 12.5 g/dL (13.5-17.5); Lymphocytes # (auto) 0.5 10 ^3/uL (0.4-5.4); Lymphocytes % (auto) 10.6 % (10.0-50.0); Mean Corpuscular Hemoglobin 33.3 pg (28.0-32.0); Mean Corpuscular Hgb Conc. 34.5 g/dL (32.0-36.0); Mean Corpuscular Volume 96.5 fL (80.0-100.0); Monocytes # (auto) 0.5 10 ^3/uL (0-1.3); Monocytes % (auto) 10.5 % (0.0-12.0); Neutrophils # (auto) 3.6 10 ^3/uL (1.6-8.6); Neutrophils % (auto) 74.8 % (37.0-80.0); Platelet Count (auto) 126 10^3/uL (140-450); Red Blood Cells 3.75 10^6/uL (4.5-5.90); Red Cell Distribution Width 13.3 % (11.8-14.3); White Blood Cell 4.8 10^3/uL (4.4-10.8)
[2024-04-06] MEDS ORDERED: amLODIPine BESYLATE 5 MG TAB PO SCH (08:30)
[2024-04-06] MEDS ORDERED: LISINOPRIL 5 MG TAB PO SCH (08:30)
[2024-04-06] MEDS ORDERED: ACETAMINOPHEN 325 MG TAB PO PRN ×2 (08:30→09:00)
[2024-04-06] MEDS ORDERED: NITROGLYCERIN 0.4 MG SL TAB SL PRN ×2 (09:00)
[2024-04-06] MEDS ORDERED: MORPHINE SULFATE INJ 2 MG/ml SYRG IV PRN (09:00)
[2024-04-06] MEDS ORDERED: hydrALAZINE HCL 20 MG/ML VL IV PRN ×2 (09:00)
[2024-04-06] MEDS: ENOXAPARIN SOD 40 MG/0.4 ML SYRINGE SC ONE (09:15)
[2024-04-06] MEDS: cefTRIAXone 1GM/50ML D5W 50 ML IV ONE (09:15)
[2024-04-06] MEDS: LISINOPRIL 5 MG TAB PO ONE (09:43)
[2024-04-06] MEDS: cefTRIAXone 1GM/50ML D5W 50 ML IV SCH (09:43)
[2024-04-06] MEDS: LISINOPRIL 5 MG TAB PO SCH (09:49)
[2024-04-06] MEDS: ENOXAPARIN SOD 40 MG/0.4 ML SYRINGE SC SCH (09:50)
[2024-04-06] MEDS: TAMSULOSIN HYDROCHLORIDE 0.4 MG CAP PO SCH (17:52)
[2024-04-06] MEDS ORDERED: PRAVASTATIN SODIUM 20 MG TAB PO SCH (22:00)
[2024-04-07] MEDS ORDERED: LEVOTHYROXINE SODIUM 50 MCG TAB PO SCH (07:00)
== END 2024-04-06 17:50 | DRG 689 ==
LOC: EAST 23:30 → TELE-EAST 04-04 00:40
PROVIDERS: ADMIT Internal Medicine; ATTEND Internal Medicine
DX: N30.00 Acute cystitis without hematuria (principal); I21.A1 Myocardial infarction type 2; J96.01 Acute respiratory failure with hypoxia; M62.82 Rhabdomyolysis; G91.2 (Idiopathic) normal pressure hydrocephalus; I73.9 Peripheral vascular disease, unspecified; E03.9 Hypothyroidism, unspecified; N40.0 Benign prostatic hyperplasia without lower urinary tract symptoms; R73.03 Prediabetes; I35.0 Nonrheumatic aortic (valve) stenosis; I10 Essential (primary) hypertension; E78.5 Hyperlipidemia, unspecified; Z20.822 Contact with and (suspected) exposure to COVID-19; B95.2 Enterococcus as the cause of diseases classified elsewhere; F03.90 Unspecified dementia, unspecified severity, without behavioral disturbance, psychotic disturbance, mood disturbance, and anxiety
CPT/HCPCS: 36415; 70450; 71045; 71250; 80053; 80307; 81001; 82306; 82550; 82607; 82746; 83036; 83735; 84443; 84484; 85025; 85610; 85730; 87081; 87086; 87426; 93306; 93970; 97163; G0378

== ENCOUNTER 2024-06-01 12:09 | Emergency (ER) | payer OTHER ==
[~2024-06-01] VITALS: Ht 182.9 cm; Wt 83.2 kg
[2024-06-01 14:55] LABS: Basophils # (auto) 0 10 ^3/uL (0-0.2); Basophils % (auto) 0.2 % (0.0-2.0); Eosinophils # (auto) 0.2 10 ^3/uL (0-0.8); Eosinophils % (auto) 4.2 % (0.0-7.0); Hematocrit 36.4 % (41.0-53.0); Hemoglobin 11.8 g/dL (13.5-17.5); Lymphocytes # (auto) 0.7 10 ^3/uL (0.4-5.4); Lymphocytes % (auto) 13.3 % (10.0-50.0); Mean Corpuscular Hemoglobin 31.6 pg (28.0-32.0); Mean Corpuscular Hgb Conc. 32.3 g/dL (32.0-36.0); Mean Corpuscular Volume 97.6 fL (80.0-100.0); Monocytes # (auto) 0.6 10 ^3/uL (0-1.3); Monocytes % (auto) 10.8 % (0.0-12.0); Neutrophils # (auto) 3.9 10 ^3/uL (1.6-8.6); Neutrophils % (auto) 71.5 % (37.0-80.0); Nucleated Red Blood Cells % 0.1 %; Platelet Count (auto) 191 10^3/uL (140-450); Red Blood Cells 3.73 10^6/uL (4.5-5.90); Red Cell Distribution Width 15.4 % (11.8-14.3); White Blood Cell 5.5 10^3/uL (4.4-10.8)
--- NOTE | 2024-06-01 15:00 | DVH ---
CHEST RADIOGRAPH Indication: sob Technique: Single frontal view of the chest was obtained Comparison: XY CHEST XRAY 1 VIEW on DOS: 04/04/24, XY CHEST XRAY 1 VIEW on DOS: 05/23/23, XY CHEST POR TABLE on DOS: 11/29/22 FINDINGS: Lines and Tubes: None Lungs: No focal consolidation. Pleura: No effusion. No pneumothorax. Cardiomediastinal contours: Unremarkable Bones: No acute osseous abnormality. IMPRESSION: No acute cardiopulmonary disease.
[2024-06-01 15:06] LABS: Alanine Aminotransferase 18 U/L (7-40); Albumin 4.2 g/dL (3.2-4.8); Alkaline Phosphatase 82 U/L (46-116); Anion Gap 6 (5-15); Aspartate Aminotransferase 28 U/L (13-40); BUN/Creatinine Ratio 31.9 (10.0-20.0); Bilirubin, Total 0.4 mg/dL (0.2-1.0); Chloride 104 mmol/L (98-107); Glucose 86 mg/dL (74-106); Potassium 4.6 mmol/L (3.5-5.1); Sodium 141 mmol/L (136-145); Total Protein 6.9 g/dL (5.7-8.2)
[2024-06-01 15:07] LABS: Blood Urea Nitrogen 30 mg/dL (9-23); Carbon Dioxide 31 mmol/L (20-31)
[2024-06-01 15:28] VITALS: BP 148/83; TEMP 97.9
[2024-06-01] MEDS: FUROSEMIDE 20 MG/2 ML VIAL IV ONE (15:39)
[2024-06-01 15:44] VITALS: PULSE 81; RESP 16; O2SAT 98
[2024-06-01 15:58] VITALS: PULSE 73
--- NOTE | 2024-06-01 15:58 | ED.PDOC ---
History of Present Illness HPI Comments 84-year-old male, with a history of acute stenosis, anemia, BPH s/p cystoscopy with TURP, DVT, HLD, HTN, NSTEMI type 2, and hypothyroidism, presents with complaint of bilateral lower leg swelling, redness, and pain for the past 2 months, today. Patient is a poor historian and endorses on being sent by his primary care physician, due to unable to see patient in his office secondary to for a long women times. Patient states on symptoms worsening since initial, unprovoked onset. He comments on heavy water fluid and food containing salt intake. He reports no additional relevant history, such as recent injuries or sick contact. He denies having any shortness of breath, chest pain, generalized weakness, urinary symptoms, or other associated symptoms or modifying us at this time. Chief Complaint: Extremity Swelling Time Seen by MD: 13:30 Primary Care Provider: YAS Callaway Notes: Nurses Notes, Medications, Allergies Allergies: Coded Allergies: NO KNOWN ALLERGIES (Unverified , 04/28/19) Home Meds Active Scripts Furosemide (Furosemide) 40 Mg Tab, 1 TAB PO DAILY, #10 TAB 5 Refills Prov:FABIAN RODRIGUEZ MD 06/01/24 Reported Medications Apixaban Base (ELIQUIS) 5 Mg Tab, 5 MG PO BID, TAB 11/29/22 Meclizine HCl (Meclizine Hydrochloride) 25 Mg Tab, 1 TAB PO TID 05/23/21 Pravastatin Sodium (PRAVACHOL TABLET) 20 Mg Tb, 2 TAB PO DAILY 05/23/21 Levothyroxine Sodium (Levothyroxine Sodium) 50 Mcg Tab, 1 TAB PO DAILY 05/23/21 Information Source: Patient Mode of Arrival: Ambulatory Severity: Moderate Timing: Months Duration: Since onset Prehospital treatment: None Past Medical History PAST MEDICAL HISTORY: Anemia, High Lipids, HTN, [place] (NSTEMI type 2), Thyroid (Hypothyroidism), UTI'S Past Medical History (Other): Acute stenosis, BPH s/p cystoscopy with TURP 2015, DVT Surgical History: Appendectomy Surgical History (Other): cystoscopy with TURP 2015 Family History Family History: Reviewed,noncontributory to illness, Family hx of Cancer Social History Smoker: Non-Smoker Alcohol: Occasionally Drugs: Denies Drug Use Lives In: Home Musculoskeletal: reports: others (Bilateral lower leg pain swelling) Integumetry: reports: change in color (Bilateral lower leg redness) All Other Systems: Reviewed and Negative (Negative unless otherwise stated above or in HPI) Physical Exam General Appearance: No Apparent Distress, Normal HEENT: Normal ENT Inspection, Pharynx Normal, TMs Normal Neck: Full Range of Motion, Non-Tender, Normal, Normal Inspection Respiratory: Chest Non-Tender, Lungs Clear, No Accessory Muscle Use, No Respiratory Distress, Normal Breath Sounds Cardiovascular: No Edema, No JVD, No Murmur, No Gallop, Normal Peripheral Pulses, Regular Rate/Rhythm Breast Exam: Deferred Gastrointestinal: No Organomegaly, Non Tender, No Pulsatile Mass, Normal Bowel Sounds, Soft Genitalia: Deferred Pelvic: Deferred Rectal: Deferred Extremities: Leg edema (Bilateral lower extremities), No calf tenderness, Normal capillary refill, Normal range of motion, No pedal edema, Swelling (Bilateral lower extremities) Musculoskeletal : Apperance: Normal Neurologic: Alert, control officer II-XII nml as Tested, No Motor Deficits, Normal Affect, Normal Mood, No Sensory Deficits Cerebellar Function: Normal Reflexes: Normal Skin: Dry, Normal Color, Warm, Other (Erythema to bilateral lower extremities) Lymphatic: No Adenopathy Was a procedure done? Was a procedure done?: No EKG EKG : Pulse Rate (adult): 73 [place]: Normal Cardiac Rhythm: NSR Block: None Hypertrophy: None ST: Normal Differential Dx Considerations may include: Fluid retention, cellulitis, dermatitis, CHF new onset X-Ray, Labs, Meds, VS Vital Signs Date Time Temp Pulse Resp B/P (MAP) Pulse Ox O2 Delivery O2 Flow Rate FiO2 06/01/24 15:58 73 06/01/24 15:44 81 16 98 Room Air* 0 21 06/01/24 15:39 148/83 06/01/24 15:28 97.9 81 16 148/83 (104) 92 97.9 06/01/24 12:35 73 06/01/24 12:30 97.8 4 16 145/72 (96) 93 Lab Test 06/01/24 14:33 Range/Units White Blood Count 5.5 4.4-10.8 10^3/uL Red Blood Count 3.73 L 4.5-5.90 10^6/uL Hemoglobin 11.8 L 13.5-17.5 g/dL Hematocrit 36.4 L 41.0-53.0 % Mean Corpuscular Volume 97.6 80.0-100.0 fL Mean Corpuscular Hemoglobin 31.6 28.0-32.0 pg Mean Corpuscular Hemoglobin Concent 32.3 32.0-36.0 g/dL Red Cell Distribution Width 15.4 H 11.8-14.3 % Platelet Count 191 140-450 10^3/uL Mean Platelet Volume 8.3 6.9-10.8 fL Neutrophils (%) (Auto) 71.5 37.0-80.0 % Lymphocytes (%) (Auto) 13.3 10.0-50.0 % Monocytes (%) (Auto) 10.8 0.0-12.0 % Eosinophils (%) (Auto) 4.2 0.0-7.0 % Basophils (%) (Auto) 0.2 0.0-2.0 % Neutrophils # (Auto) 3.9 1.6-8.6 10 ^3/uL Lymphocytes # (Auto) 0.7 0.4-5.4 10 ^3/uL Monocytes # (Auto) 0.6 0-1.3 10 ^3/uL Eosinophils # (Auto) 0.2 0-0.8 10 ^3/uL Basophils # (Auto) 0 0-0.2 10 ^3/uL Nucleated Red Blood Cells 0.1 % Sodium Level 141 136-145 mmol/L Potassium Level 4.6 3.5-5.1 mmol/L Chloride Level 104 98-107 mmol/L Carbon Dioxide Level 31 20-31 mmol/L Anion Gap 6 5-15 Blood Urea Nitrogen 30 H 9-23 mg/dL Creatinine 0.94 0.700-1.30 mg/dL Glomerular Filtration Rate Calc 79 >90 mL/min BUN/Creatinine Ratio 31.9 H 10.0-20.0 Serum Glucose 86 74-106 mg/dL Calcium Level 10.0 8.7-10.4 mg/dL Total Bilirubin 0.4 0.2-1.0 mg/dL Aspartate Amino Transferase (AST) 28 13-40 U/L Alanine Aminotransferase (ALT) 18 7-40 U/L Alkaline Phosphatase 82 46-116 U/L B-Type Natriuretic Peptide 497.23 0-100 pg/mL Total Protein 6.9 5.7-8.2 g/dL Albumin 4.2 3.2-4.8 g/dL Current Medications Medications (Trade) Dose Ordered Sig/Leon Route Start Time Stop Time Status Last Admin Furosemide (Lasix Injection) 60 mg ONCE ONCE IV 06/01/24 14:30 06/01/24 14:31 DC 06/01/24 15:[address] [address] Ph: [phone] DIAGNOSTIC IMAGING Diagnostic Imaging Report : [id number] Signed PATIENT: GIANNA HOLBROOK ACCT: [id number] UNIT: [id number] : 1940 LOC: ER ROOM / BED: / AGE / SEX: 84 / M ADM STATUS: REG ER SERVICE 17 ORDERING PHYSICIAN: FABIAN RODRIGUEZ MD PROCEDURE(s): CXRP - CHEST PORTABLE REASON: sob ORDER NUMBER(s): [id number], ACCESSION NUMBER(s): [id number] CHEST RADIOGRAPH Indication: sob Technique: Single frontal view of the chest was obtained Comparison: XY CHEST XRAY 1 VIEW on DOS: 04/04/24, XY CHEST XRAY 1 VIEW on DOS: 05/23/23, XY CHEST PORTABLE on DOS: 11/29/22 FINDINGS: Lines and Tubes: None Lungs: No focal consolidation. Pleura: No effusion. No pneumothorax. Cardiomediastinal contours: Unremarkable Bones: No acute osseous abnormality. IMPRESSION: No acute cardiopulmonary disease. ATED BY: DONOVAN MATIAS MD DICTATED DATE/TIME: 06/01/241456 SIGNED BY: DONOVAN MATIAS MD SIGNED DATE/TIME: 06/01/241456 CC: Time of 1ST Reevaluation: 14:00 Reevaluation 1ST: Unchanged Patient Education/Counseling: Diagnosis, Treatment Family Education/Counseling: No Family Present Additional Information I reviewed the following notes from patient's past medical encounters: Previous hospital admission discharge summary on 04/05/24 The following tests were ordered, and results were reviewed by me: Labs, CXR, EKG I reviewed and agreed with the following test results read by other providers: CXR Departure 1 Departure Time of Disposition: 16:17 Impression: Primary Impression: Lower extremity edema Disposition: HOME / SELF CARE / HOMELESS Condition: Stable e-Prescriptions Furosemide (Furosemide) 40 Mg Tab 1 TAB PO DAILY, #10 TAB 5 Refills Prov: FABIAN RODRIGUEZ MD 06/01/24 Critical Care Note Critical Care Time?: No Stability Stability form required: No Heart Score Heart Score: Heart Score Response (Comments) Value History N/A 0 EKG Normal 0 Age >65 2 Risk Factors >3 or Hx ASHD 2 Troponin N/A 0 Total 4 I personally scribed for FABIAN RODRIGUEZ MD ([email or web address]) on 06/01/24 at 15:58. Electronically submitted by Gonsalo Ramos ([email or web address]). I personally scribed for FABIAN RODRIGUEZ MD ([email or web address]) on 06/01/24 at 16:17. Electronically submitted by Gonsalo Ramos ([email or web address]). FABIAN RODRIGUEZ MD Jun 01, 2024 15:58
[2024-06-01] MEDS ORDERED: FURO40TA4 PO (16:19)
--- NOTE | 2024-06-02 04:27 | ECG ---
[facility] Test Date: 2024-06-01 Test Time: 12:35:09 Pat Name: GIANNA HOLBROOK Department: ER Room: Gender: M Database Support: JASON : 1940 Requested By: FABIAN RODRIGUEZ Order Number: [id number] Reading MD: Measurements Intervals [place] Rate: 73 P: 74 TN: 168 QRS: 73 QRSD: 86 T: 51 QT: 368 QTc: 406 Interpretive Statements Sinus rhythm Baseline wander in lead(s) V6 Please click the below link to view image of tracing.
== END 2024-06-01 16:36 | disposition home or self-care (01) ==
LOC: ER 12:09
DX: R60.0 Localized edema (principal); E78.5 Hyperlipidemia, unspecified; I10 Essential (primary) hypertension; E03.9 Hypothyroidism, unspecified; Z90.49 Acquired absence of other specified parts of digestive tract; Z79.899 Other long term (current) drug therapy; Z90.89 Acquired absence of other organs; Z98.890 Other specified postprocedural states
CPT/HCPCS: 36415; 71045; 80053; 83880; 85025; 93005; 96374; 99285; J1940

== ENCOUNTER → 2024-06-22 | Outpatient (CLI) | payer OTHER ==
[~2024-06-22] MED LIST changes: +FURO40TA4 PO
[2024-06-22 14:58] LABS: Basophils # (auto) 0 10 ^3/uL (0-0.2); Basophils % (auto) 0.3 % (0.0-2.0); Eosinophils # (auto) 0.2 10 ^3/uL (0-0.8); Eosinophils % (auto) 2.5 % (0.0-7.0); Hemoglobin 10.7 g/dL (13.5-17.5); Lymphocytes # (auto) 0.8 10 ^3/uL (0.4-5.4); Lymphocytes % (auto) 11.1 % (10.0-50.0); Mean Corpuscular Hgb Conc. 33.5 g/dL (32.0-36.0); Mean Corpuscular Volume 95.6 fL (80.0-100.0); Monocytes # (auto) 0.8 10 ^3/uL (0-1.3); Monocytes % (auto) 11.4 % (0.0-12.0); Neutrophils # (auto) 5.4 10 ^3/uL (1.6-8.6); Neutrophils % (auto) 74.7 % (37.0-80.0); Platelet Count (auto) 217 10^3/uL (140-450); Red Blood Cells 3.35 10^6/uL (4.5-5.90); Red Cell Distribution Width 14.9 % (11.8-14.3); White Blood Cell 7.2 10^3/uL (4.4-10.8)
[2024-06-22 15:42] LABS: Alanine Aminotransferase 14 U/L (7-40); Albumin 4.2 g/dL (3.2-4.8); Alkaline Phosphatase 84 U/L (46-116); Anion Gap 5 (5-15); Aspartate Aminotransferase 18 U/L (13-40); Calcium 10.1 mg/dL (8.7-10.4); Carbon Dioxide 31 mmol/L (20-31); Chloride 104 mmol/L (98-107); Glucose 80 mg/dL (74-106); Potassium 4.5 mmol/L (3.5-5.1); Sodium 140 mmol/L (136-145); Total Protein 7.1 g/dL (5.7-8.2)
[2024-06-22 15:49] LABS: Bilirubin, Total 0.3 mg/dL (0.2-1.0); Blood Urea Nitrogen 30 mg/dL (9-23)
== END | disposition home or self-care (01) ==
LOC: LAB 14:09
PROVIDERS: ATTEND Internal Medicine
DX: I10 Essential (primary) hypertension (principal); E78.5 Hyperlipidemia, unspecified
CPT/HCPCS: 36415; 80053; 83036; 85025

== ENCOUNTER 2024-07-30 08:15 | Inpatient (IN) | payer OTHER ==
[2024-07-28 12:40] LABS: Urine Bacteria None Seen /hpf (None Seen)
[2024-07-28 12:53] LABS: Basophils # (auto) 0 10 ^3/uL (0-0.2); Basophils % (auto) 0.3 % (0.0-2.0); Eosinophils # (auto) 0.1 10 ^3/uL (0-0.8); Eosinophils % (auto) 1.6 % (0.0-7.0); Hematocrit 40.3 % (41.0-53.0); Hemoglobin 13.2 g/dL (13.5-17.5); Lymphocytes # (auto) 0.8 10 ^3/uL (0.4-5.4); Lymphocytes % (auto) 15.7 % (10.0-50.0); Mean Corpuscular Hgb Conc. 32.9 g/dL (32.0-36.0); Mean Corpuscular Volume 97.4 fL (80.0-100.0); Monocytes # (auto) 0.5 10 ^3/uL (0-1.3); Monocytes % (auto) 9.1 % (0.0-12.0); Neutrophils # (auto) 3.8 10 ^3/uL (1.6-8.6); Neutrophils % (auto) 73.3 % (37.0-80.0); Platelet Count (auto) 126 10^3/uL (140-450); Red Blood Cells 4.14 10^6/uL (4.5-5.90); White Blood Cell 5.2 10^3/uL (4.4-10.8)
[2024-07-28 13:09] LABS: Urine Blood Negative /uL (Negative); Urine Clarity Clear (Clear); Urine Color Light-Yellow (Yellow); Urine Protein, UAD Negative (Negative); Urine Squamous Epithelial Cell FEW /hpf (<5); Urine Urobilinogen Normal (Negative); Urine WBC 1 /HPF (0-3)
[2024-07-28 13:11] LABS: INR 0.99 (0.9-1.15); Partial Thromboplastin Time 24.6 SEC (24.5-34.5); Prothrombin Time 10.5 sec (9.3-11.8)
[2024-07-28 13:21] LABS: Alanine Aminotransferase 17 U/L (7-40); Alkaline Phosphatase 63 U/L (46-116); Anion Gap 4 (5-15); BUN/Creatinine Ratio 29.8 (10.0-20.0); Chloride 100 mmol/L (98-107); Glucose 94 mg/dL (74-106); Potassium 4.4 mmol/L (3.5-5.1); Sodium 139 mmol/L (136-145)
[2024-07-28 13:22] LABS: Aspartate Aminotransferase 18 U/L (13-40); Bilirubin, Total 0.5 mg/dL (0.2-1.0)
[2024-07-28 13:23] LABS: Total Protein 7.2 g/dL (5.7-8.2)
[2024-07-28 13:28] LABS: Albumin 4.8 g/dL (3.2-4.8); Blood Urea Nitrogen 25 mg/dL (9-23); Calcium 10.8 mg/dL (8.7-10.4); Carbon Dioxide 35 mmol/L (20-31)
[~2024-07-30] VITALS: Ht 182.9 cm; Wt 77.6 kg
[2024-07-30] VITALS (7 sets, daily range): BP systolic 142–160; BP diastolic 79–84; PULSE 49–92; RESP 18–20; TEMP 97.5–98.7; O2SAT 94–99
[~2024-07-30 08:15] MED LIST changes: -APIX5TAB PO; +ASPI-498 OR; +FINA5TAB4 PO
[2024-07-30] MEDS ORDERED: CIPROFLOXACIN 400MG/200ML 200 ML IV ONE (08:58)
[2024-07-30] MEDS ORDERED: BUPIVACAINE 0.5% P/F INJ 10 ML VIAL ONE (09:10)
[2024-07-30] MEDS ORDERED: fentaNYL CITRATE 100 MCG/2 ML VL ONE (09:15)
[2024-07-30] MEDS ORDERED: MIDAZOLAM HCL 2MG/2ML 2ml VIAL (1mg/ml) ONE (09:16)
[2024-07-30] MEDS ORDERED: ePHEDrine SULFATE 50 MG/ML AMP IV PRN (09:30)
[2024-07-30] MEDS ORDERED: HYDROmorphone HCL 2 MG/ML VL/or syr IV PRN (09:30)
[2024-07-30] MEDS ORDERED: MORPHINE SULFATE 4 MG/ML SYR/VIAL IV PRN (09:30)
[2024-07-30] MEDS ORDERED: ONDANSETRON HCL 4 MG/2 ML VIAL IV ONE (09:30)
[2024-07-30] MEDS ORDERED: MIDAZOLAM HCL 2MG/2ML 2ml VIAL (1mg/ml) IV PRN (09:30)
[2024-07-30] MEDS ORDERED: BACITRACIN TOP OINT 1 UD PKG TOP ONE (09:32)
[2024-07-30] MEDS ORDERED: LIDOCAINE W/ EPINEPHRINE 1% 20ML VIAL ONE (09:36)
[2024-07-30] MEDS ORDERED: PROPOFOL 10 MG/ML 20 ML IV ONE (09:40)
[2024-07-30] MEDS ORDERED: DexAMETHasone SOD PHOS 10MG/1ML VIAL INJ ONE (09:40)
--- NOTE | 2024-07-30 10:22 | DVHOP2 ---
Operative Report - 2 Report Details Date: 07/30/24 Preop Diagnosis: Bladder neck contracture Bladder outlet obstruction Postop Diagnosis: Same Surgeon: Alison Woodward Anesthesiologist: Carly Anesthesia: Regional Consent: The patient was informed of the risks and benefits of the procedure. These include but are not limited to complications of anesthesia, postoperative infection, incomplete relief of symptoms, recurrence of symptoms, damage to blood vessels, nerves and tendons, deep venous thrombosis, pulmonary embolism and possible need for repeat surgery in the future. Indications for Surgery: Patient has bladder neck contracture and urinary outlet obstruction. Name of Procedure Performed Trans urethral resection of the bladder neck contracture Trans urethral resection of the prostate Procedure Details Procedure Details: At for administration of spinal anesthesia. Patient was placed in dorsal lithotomy position with the area of the genitalia prepped and draped in usual sterile manner. Twenty-six Lebanese resectoscope sheath with the medium size and bipolar loop resecting element was used to access the bladder neck contracture. It was then resected and the bladder was subsequently accessed. Ureteric orifices were noted and avoiding of any injury. The bipolar button resecting element was used with normal saline irrigation to resect the minimal prostate tissue and hemostasis was controlled. Prostatic chips and bladder neck tissue were sent to pathology. The resectoscope was removed in entirety and a [address] Adhikari catheter was inserted for continuous bladder irrigation and postoperative management. Patient tolerated the procedure well and he was awakened and taken to recovery room in stable condition. Specimen: Bladder neck tissue and prostate tissue Condition Fair Disposition Home ALISON WOODWARD MD Jul 30, 2024 10:22
--- NOTE | 2024-07-30 10:23 | DVHDS2 ---
New Physician D'charge PN Admitting Diagnosis Admitting Diagnosis Bladder neck contracture Bladder outlet obstruction Discharge Diagnosis Same Operations or Procedures Trans urethral resection of the bladder neck contracture Trans urethral resection of the prostate Reason(s) For Hospitalization Surgery Hospital Course At for administration of spinal anesthesia. Patient was placed in dorsal lithotomy position with the area of the genitalia prepped and draped in usual sterile manner. Twenty-six Croatian resectoscope sheath with the medium size and bipolar loop resecting element was used to access the bladder neck contracture. It was then resected and the bladder was subsequently accessed. Ureteric orifices were noted and avoiding of any injury. The bipolar button resecting element was used with normal saline irrigation to resect the minimal prostate tissue and hemostasis was controlled. Prostatic chips and bladder neck tissue were sent to pathology. The resectoscope was removed in entirety and a [address] Adhikari catheter was inserted for continuous bladder irrigation and postoperative management. Patient tolerated the procedure well and he was awakened and taken to recovery room in stable condition. Treatment Plan Discharge Condition of Discharge Fair Disposition Home Discharge Instructions Diet: Regular Activity: Light activity Activity comment: As tolerated Medications: Given Follow Up Care Follow Up/Referral: Return to clinic in two weeks for voiding trial Discharge Statement: "Patient was advised to return to the ER or call 911 if any headaches, dizziness, shortness of breath, chest pain, abdominal pain, bleeding, fevers, or worsening of medical condition. Patient was counseled about treatment plan, medications, possible side effects, patientverbalized understanding. All questions were answered to the best of my ability. This discharge took greater then 30 minutes in planning, reviewing documentation, counseling the patient, and discussing with other team members." ALISON WOODWARD MD Jul 30, 2024 10:23
[2024-07-30] MEDS: hydrALAZINE HCL 20 MG/ML VL IV PRN (11:20)
--- NOTE | 2024-07-30 16:27 | DVHHP2 ---
Review of Systems Allergies: Coded Allergies: NO KNOWN ALLERGIES (Unverified , 04/28/19) Exam Vital Signs Vital Signs Date Time Temp Pulse Resp B/P (MAP) Pulse Ox O2 Delivery O2 Flow Rate FiO2 07/30/24 15:45 93 12 146/77 (100) 94 07/30/24 13:12 Room Air 0 07/30/24 10:12 99 07/30/24 10:12 96.6 96.6 Labs/Xrays Labs Test 07/28/24 12:38 Range/Units White Blood Count 5.2 4.4-10.8 10^3/uL Red Blood Count 4.14 L 4.5-5.90 10^6/uL Hemoglobin 13.2 L 13.5-17.5 g/dL Hematocrit 40.3 L 41.0-53.0 % Mean Corpuscular Volume 97.4 80.0-100.0 fL Mean Corpuscular Hemoglobin 32.0 28.0-32.0 pg Mean Corpuscular Hemoglobin Concent 32.9 32.0-36.0 g/dL Red Cell Distribution Width 16.0 H 11.8-14.3 % Platelet Count 126 L 140-450 10^3/uL Mean Platelet Volume 8.5 6.9-10.8 fL Neutrophils (%) (Auto) 73.3 37.0-80.0 % Lymphocytes (%) (Auto) 15.7 10.0-50.0 % Monocytes (%) (Auto) 9.1 0.0-12.0 % Eosinophils (%) (Auto) 1.6 0.0-7.0 % Basophils (%) (Auto) 0.3 0.0-2.0 % Neutrophils # (Auto) 3.8 1.6-8.6 10 ^3/uL Lymphocytes # (Auto) 0.8 0.4-5.4 10 ^3/uL Monocytes # (Auto) 0.5 0-1.3 10 ^3/uL Eosinophils # (Auto) 0.1 0-0.8 10 ^3/uL Basophils # (Auto) 0 0-0.2 10 ^3/uL Nucleated Red Blood Cells 0.0 % Prothrombin Time 10.5 9.3-11.8 sec Prothrombin Time INR 0.99 0.9-1.15 Activated Partial Thromboplast Time 24.6 24.5-34.5 SEC Urine Color Light-yellow Yellow Urine Clarity Clear Clear Urine pH 7.0 5.0-9.0 Urine Specific [place] 1.010 1.001-1.035 Urine Protein Negative Negative Urine Ketones Negative Negative Urine Blood Negative Negative /uL Urine Nitrite Negative Negative Urine Bilirubin Negative Negative Urine Urobilinogen Normal Negative mg/dL Urine Leukocyte Esterase Negative Negative /uL Urine RBC 1 0 - 3 /hpf Urine Microscopic WBC 1 0-3 /HPF Urine Squamous Epithelial Cells Few <5 /hpf Urine Bacteria None seen None Seen /hpf Urine Glucose Normal Normal mg/dL Sodium Level 139 136-145 mmol/L Potassium Level 4.4 3.5-5.1 mmol/L Chloride Level 100 98-107 mmol/L Carbon Dioxide Level 35 H 20-31 mmol/L Anion Gap 4 L 5-15 Blood Urea Nitrogen 25 H 9-23 mg/dL Creatinine 0.84 0.700-1.30 mg/dL Glomerular Filtration Rate Calc 85 >90 mL/min BUN/Creatinine Ratio 29.8 H 10.0-20.0 Serum Glucose 94 74-106 mg/dL Calcium Level 10.8 H 8.7-10.4 mg/dL Total Bilirubin 0.5 0.2-1.0 mg/dL Aspartate Amino Transferase (AST) 18 13-40 U/L Alanine Aminotransferase (ALT) 17 7-40 U/L Alkaline Phosphatase 63 46-116 U/L Total Protein 7.2 5.7-8.2 g/dL Albumin 4.8 3.2-4.8 g/dL Microbiology Date/Time Source Procedure Growth Status 07/28/24 12:38 Voided Urine Urine Culture - Final Complete Assessment/Plan Assessment/Plan see dictated note Plan discussed with: Patient Date of Service: Jul 30, 2024 Billing Provider: LINK CROWELL MD Common Visit Codes: [id number] INP/OBS CARE (HIGH) LINK CROWELL MD Jul 30, 2024 16:27
--- NOTE | 2024-07-30 16:29 | CODING ---
Date of Service: Jul 30, 2024 Billing Provider: LINK CROWELL MD Common Visit Codes: [id number] INP/OBS CARE (HIGH) Secondary Visit Codes: [id number] CARE PLAN 30 MINUTES LINK CROWELL MD Jul 30, 2024 16:29
[2024-07-30] MEDS ORDERED: hydrALAZINE HCL 20 MG/ML VL IV PRN (16:30)
--- NOTE | 2024-07-30 16:38 | DVHHP ---
ADMIT DATE: 07/30/2024 HISTORY OF PRESENT ILLNESS: The patient is 84-year-old gentleman who underwent surgery for bladder neck contracture and bladder outlet obstruction. The patient postoperatively, however, developed hematuria and has now been admitted to observe. The patient at this time denies any pain in the abdomen or in the bladder area. No chest pain or shortness of breath. No nausea or vomiting. REVIEW OF SYSTEMS: Review of rest of systems are otherwise currently negative. PAST MEDICAL HISTORY: Significant for hyperlipidemia, hypothyroidism, BPH. MEDICATIONS: Include Lasix, levothyroxine, Pravachol. ALLERGIES: No known drug allergies. SOCIAL HISTORY: Lives alone. Denies smoking or alcohol. FAMILY HISTORY: Negative. PHYSICAL EXAMINATION: GENERAL: The patient is awake, alert. VITAL SIGNS: Temperature of 96.6, pulse 84 per minute, blood pressure 146/76. SHEENT: Unremarkable. NECK: There is no JVD, no pedal edema. LUNGS: Equal bilaterally. No added sounds. CARDIOVASCULAR SYSTEM: S1, S2 is regular, no murmurs. ABDOMEN: Soft. There is no organomegaly. NEUROLOGIC: Nonfocal. MUSCULOSKELETAL: Normal. ASSESSMENT AND PLAN: * Hyperlipidemia. * Hypothyroidism. * Status post surgery for bladder outlet obstruction. The patient will be placed on continuous bladder irrigation along with IV Rocephin. * Questionable hypertension, for which he will be placed on as needed hydralazine. Advance care planning, the patient is a full code-Time spent was 19 minutes. MD GÓMEZ Bray/MANAV TID: [id number] RECEIPT: [id number] MTDD
[2024-07-30] MEDS: HYDROcodone-ACET 5/325MG TAB PO PRN (17:28)
[2024-07-30] MEDS: ACETAMINOPHEN 325 MG TAB PO PRN (19:58)
[2024-07-31] VITALS (8 sets, daily range): BP systolic 125–151; BP diastolic 61–77; PULSE 53–77; RESP 14–17; TEMP 97.3–98.4; O2SAT 91–96
[2024-07-31] MEDS: ONDANSETRON HCL 4 MG/2 ML VIAL IV PRN (03:31)
[2024-07-31] MEDS: LEVOTHYROXINE SODIUM 50 MCG TAB PO SCH (05:40)
--- NOTE | 2024-07-31 06:09 | DVH ---
EXAM: XR Chest, 1 View CLINICAL INDICATION: htn TECHNIQUE: Frontal view of the chest. COMPARISON: XY CHEST PORTABLE on DOS: 06/01/24, XY CHEST XRAY 1 VIEW on DOS: 04/04/24, XY CHEST XRA Y 1 VIEW on DOS: 05/23/23, XY CHEST PORTABLE on DOS: 11/29/22 FINDINGS: LUNGS AND PLEURAL SPACES: Unremarkable. No consolidation. No pneumothorax. HEART: Unremarkable. No cardiomegaly. MEDIASTINUM: Unremarkable. Normal mediastinal contour. BONES/JOINTS: Unremarkable. No acute fracture. OTHER FINDINGS: . None. . . .. IMPRESSION: No acute cardiopulmonary process.
[2024-07-31 07:21] LABS: Basophils # (auto) 0 10 ^3/uL (0-0.2); Basophils % (auto) 0.1 % (0.0-2.0); Eosinophils # (auto) 0 10 ^3/uL (0-0.8); Hemoglobin 11.5 g/dL (13.5-17.5); Lymphocytes # (auto) 0.8 10 ^3/uL (0.4-5.4); Lymphocytes % (auto) 12.4 % (10.0-50.0); Mean Corpuscular Hemoglobin 31.8 pg (28.0-32.0); Mean Corpuscular Hgb Conc. 32.8 g/dL (32.0-36.0); Mean Corpuscular Volume 97.2 fL (80.0-100.0); Monocytes # (auto) 0.5 10 ^3/uL (0-1.3); Monocytes % (auto) 8.3 % (0.0-12.0); Neutrophils # (auto) 4.8 10 ^3/uL (1.6-8.6); Neutrophils % (auto) 79.2 % (37.0-80.0); Platelet Count (auto) 112 10^3/uL (140-450); Red Cell Distribution Width 15.8 % (11.8-14.3); White Blood Cell 6.1 10^3/uL (4.4-10.8)
[2024-07-31 07:33] LABS: Alanine Aminotransferase 12 U/L (7-40); Albumin 3.7 g/dL (3.2-4.8); Alkaline Phosphatase 48 U/L (46-116); Anion Gap 4 (5-15); BUN/Creatinine Ratio 29.5 (10.0-20.0); Calcium 9.5 mg/dL (8.7-10.4); Chloride 103 mmol/L (98-107); Potassium 4.2 mmol/L (3.5-5.1); Sodium 139 mmol/L (136-145)
[2024-07-31 07:34] LABS: Bilirubin, Total 0.4 mg/dL (0.2-1.0)
[2024-07-31 07:35] LABS: Aspartate Aminotransferase 12 U/L (13-40); Blood Urea Nitrogen 23 mg/dL (9-23); Carbon Dioxide 32 mmol/L (20-31); Glucose 141 mg/dL (74-106); Total Protein 5.6 g/dL (5.7-8.2)
[2024-07-31] MEDS: cefTRIAXone 1GM/50ML D5W 50 ML IV SCH (08:38)
[2024-07-31] MEDS: FINASTERIDE 5 MG TAB PO SCH (08:38)
--- NOTE | 2024-07-31 13:03 | DVHPN2 ---
Reviewed: Care Plan, H&P, Labs, Medications, Previous Orders, Radiology Changes from previous H/P or p: No Changes Objective Vitals Vital Signs Date Time Temp Pulse Resp B/P (MAP) Pulse Ox O2 Delivery O2 Flow Rate FiO2 07/31/24 09:13 98.4 71 14 140/61 (87) 96 98.4 07/31/24 08:00 Room Air* 0 21 Intake/Output Intake and Output 07/31/24 07:00 Intake Total 350 ml Balance 350 ml Intake Oral 250 ml IV Total 100 ml Medications Current Medications Medications Dose Ordered Sig/Leon Route Start Time Stop Time Status Last Admin Dose Admin Finasteride 5 mg DAILY PO 07/31/24 10:00 07/31/24 08:38 5 MG Levothyroxine Sodium 50 mcg QAM@0600 PO 07/31/24 06:00 07/31/24 05:40 50 MCG Acetaminophen 650 mg Q6HP PRN PO 07/30/24 16:30 07/31/24 12:47 650 MG Acetaminophen/ Hydrocodone Bitart 1 tab Q6HPRN PRN PO 07/30/24 16:30 07/31/24 01:42 1 TAB Ondansetron HCl 4 mg Q6HPRN PRN IV 07/30/24 16:30 07/31/24 03:31 4 MG Ceftriaxone Sodium 50 ml @ 100 mls/hr DAILY@09 IV 07/31/24 09:00 07/31/24 08:38 100 MLS/HR Hydralazine HCl 10 mg Q6HP PRN IV 07/30/24 16:30 Laboratory Results Laboratory Tests 07/31/24 06:46 Chemistry Test 07/31/24 06:46 Albumin 3.7 g/dL (3.2-4.8) Calcium Level 9.5 mg/dL (8.7-10.4) Total Protein 5.6 g/dL (5.7-8.2) L LFT Test 07/31/24 06:46 Alanine Aminotransferase (ALT) 12 U/L (7-40) Alkaline Phosphatase 48 U/L (46-116) Aspartate Amino Transferase (AST) 12 U/L (13-40) L Total Bilirubin 0.4 mg/dL (0.2-1.0) Urinalysis Test 07/28/24 12:38 Urine Color Light-yellow (Yellow) Urine Clarity Clear (Clear) Urine pH 7.0 (5.0-9.0) Urine Specific [place] 1.010 (1.001-1.035) Urine Protein Negative (Negative) Urine Ketones Negative (Negative) Urine Blood Negative /uL (Negative) Urine Nitrite Negative (Negative) Urine Bilirubin Negative (Negative) Urine Urobilinogen Normal mg/dL (Negative) Urine Leukocyte Esterase Negative /uL (Negative) Urine RBC 1 /hpf (0 - 3) Urine Microscopic WBC 1 /HPF (0-3) Urine Squamous Epithelial Cells Few /hpf (<5) Urine Bacteria None seen /hpf (None Seen) Urine Glucose Normal mg/dL (Normal) Microbiology Microbiology Date/Time Source Procedure Growth Status 07/28/24 12:38 Voided Urine Urine Culture - Final Complete Labs and/or images reviewed: Labs reviewed by me, Image(s) reviewed by me Assessment/Plan Assessment/Plan Status post surgery for bladder outlet obstruction continuous bladder irrigation, IV Rocephin Hypertension: Hydralazine Hyperlipidemia Hypothyroidism PCP Dr Dutton Plan discussed with: Patient Date of Service: Jul 31, 2024 Billing Provider: DERIK PARRISH MD Common Visit Codes: [id number] INP/OBS CARE(HIGH) DERIK PARRISH MD Jul 31, 2024 13:03
[2024-08-01] VITALS (7 sets, daily range): BP systolic 135–176; BP diastolic 57–84; PULSE 50–70; RESP 16–18; TEMP 97.4–98.1; O2SAT 90–98
--- NOTE | 2024-08-01 09:30 | DVHPN2 ---
Reviewed: Care Plan, H&P, Labs, Medications, Previous Orders, Radiology Changes from previous H/P or p: No Changes Objective Vitals Vital Signs Date Time Temp Pulse Resp B/P (MAP) Pulse Ox O2 Delivery O2 Flow Rate FiO2 08/01/24 08:00 70 16 95 Room Air* 0 21 08/01/24 07:53 97.5 176/80 (112) 97.5 Intake/Output Intake and Output 08/01/24 07:00 Intake Total 1490 ml Output Total 34445 ml Balance -87569 ml Intake Oral 1440 ml IV Total 50 ml Output Urine Total 5100 ml Other 6550 ml Medications Current Medications Medications Dose Ordered Sig/Leon Route Start Time Stop Time Status Last Admin Dose Admin Finasteride 5 mg DAILY PO 07/31/24 10:00 08/01/24 08:37 5 MG Levothyroxine Sodium 50 mcg QAM@0600 PO 07/31/24 06:00 08/01/24 05:36 50 MCG Acetaminophen 650 mg Q6HP PRN PO 07/30/24 16:30 07/31/24 12:47 650 MG Acetaminophen/ Hydrocodone Bitart 1 tab Q6HPRN PRN PO 07/30/24 16:30 07/31/24 01:42 1 TAB Ondansetron HCl 4 mg Q6HPRN PRN IV 07/30/24 16:30 07/31/24 03:31 4 MG Ceftriaxone Sodium 50 ml @ 100 mls/hr DAILY@09 IV 07/31/24 09:00 08/01/24 08:36 100 MLS/HR Hydralazine HCl 10 mg Q6HP PRN IV 07/30/24 16:30 Laboratory Results Laboratory Tests 07/31/24 06:46 Urinalysis Test 07/28/24 12:38 Urine Color Light-yellow (Yellow) Urine Clarity Clear (Clear) Urine pH 7.0 (5.0-9.0) Urine Specific [place] 1.010 (1.001-1.035) Urine Protein Negative (Negative) Urine Ketones Negative (Negative) Urine Blood Negative /uL (Negative) Urine Nitrite Negative (Negative) Urine Bilirubin Negative (Negative) Urine Urobilinogen Normal mg/dL (Negative) Urine Leukocyte Esterase Negative /uL (Negative) Urine RBC 1 /hpf (0 - 3) Urine Microscopic WBC 1 /HPF (0-3) Urine Squamous Epithelial Cells Few /hpf (<5) Urine Bacteria None seen /hpf (None Seen) Urine Glucose Normal mg/dL (Normal) Microbiology Microbiology Date/Time Source Procedure Growth Status 07/28/24 12:38 Voided Urine Urine Culture - Final Complete Labs and/or images reviewed: Labs reviewed by me, Image(s) reviewed by me Assessment/Plan Assessment/Plan Status post surgery for bladder outlet obstruction continuous bladder irrigation, IV Rocephin Hypertension: Hydralazine Hyperlipidemia Hypothyroidism UTI: Continue Rocephin: Urine cultures negative PCP Dr Dutton Plan discussed with: Patient Date of Service: Aug 01, 2024 Billing Provider: DERIK PARRISH MD Common Visit Codes: [id number] INP/OBS CARE(HIGH) DERIK PARRISH MD Aug 01, 2024 09:30
[2024-08-01] MEDS: LACTULOSE 20Gm/30ML SOLN PO ONE (15:02)
[2024-08-02 01:00] VITALS: BP 161/76; PULSE 49; RESP 18; TEMP 98.3; O2SAT 95
[2024-08-02 05:00] VITALS: BP 129/63; PULSE 62; RESP 18; TEMP 97.9; O2SAT 96
[2024-08-02 08:00] VITALS: PULSE 61; RESP 16; O2SAT 96
[2024-08-02 09:00] VITALS: BP 156/75; PULSE 61; RESP 16; TEMP 97.8; O2SAT 96
[2024-08-02] MEDS ORDERED: CIPR-173 PO (10:01)
[2024-08-02] MEDS ORDERED: HYDR-4902 PO (10:01)
--- NOTE | 2024-08-02 10:03 | DVHPN2 ---
Reviewed: Care Plan, H&P, Labs, Medications, Previous Orders, Radiology Changes from previous H/P or p: No Changes Objective Vitals Vital Signs Date Time Temp Pulse Resp B/P (MAP) Pulse Ox O2 Delivery O2 Flow Rate FiO2 08/02/24 09:00 97.8 61 16 156/75 (102) 96 97.8 08/01/24 20:00 Room Air* 0 21 Intake/Output Intake and Output 08/02/24 07:00 Intake Total 1250 ml Output Total 9650 ml Balance -8400 ml Intake Oral 1200 ml IV Total 50 ml Output Urine Total 9650 ml # Bowel Movements 1 Medications Current Medications Medications Dose Ordered Sig/Leon Route Start Time Stop Time Status Last Admin Dose Admin Finasteride 5 mg DAILY PO 07/31/24 10:00 08/02/24 08:52 5 MG Levothyroxine Sodium 50 mcg QAM@0600 PO 07/31/24 06:00 08/02/24 06:05 50 MCG Acetaminophen 650 mg Q6HP PRN PO 07/30/24 16:30 08/01/24 20:49 650 MG Acetaminophen/ Hydrocodone Bitart 1 tab Q6HPRN PRN PO 07/30/24 16:30 07/31/24 01:42 1 TAB Ondansetron HCl 4 mg Q6HPRN PRN IV 07/30/24 16:30 07/31/24 03:31 4 MG Ceftriaxone Sodium 50 ml @ 100 mls/hr DAILY@09 IV 07/31/24 09:00 08/02/24 08:52 100 MLS/HR Hydralazine HCl 10 mg Q6HP PRN IV 07/30/24 16:30 Laboratory Results Laboratory Tests 07/31/24 06:46 Urinalysis Test 07/28/24 12:38 Urine Color Light-yellow (Yellow) Urine Clarity Clear (Clear) Urine pH 7.0 (5.0-9.0) Urine Specific [place] 1.010 (1.001-1.035) Urine Protein Negative (Negative) Urine Ketones Negative (Negative) Urine Blood Negative /uL (Negative) Urine Nitrite Negative (Negative) Urine Bilirubin Negative (Negative) Urine Urobilinogen Normal mg/dL (Negative) Urine Leukocyte Esterase Negative /uL (Negative) Urine RBC 1 /hpf (0 - 3) Urine Microscopic WBC 1 /HPF (0-3) Urine Squamous Epithelial Cells Few /hpf (<5) Urine Bacteria None seen /hpf (None Seen) Urine Glucose Normal mg/dL (Normal) Microbiology Microbiology Date/Time Source Procedure Growth Status 07/28/24 12:38 Voided Urine Urine Culture - Final Complete Labs and/or images reviewed: Labs reviewed by me, Image(s) reviewed by me Assessment/Plan Assessment/Plan Status post TURP Hypertension: Hydralazine Hyperlipidemia Hypothyroidism UTI: Continue Rocephin: Urine cultures negative PCP Dr Dutton Plan discussed with: Patient Date of Service: Aug 02, 2024 Billing Provider: DERIK PARRISH MD Common Visit Codes: [id number] INP/OBS CARE(HIGH) DERIK PARRISH MD Aug 02, 2024 10:03
--- NOTE | 2024-08-02 10:07 | DVHDS2 ---
Discharge Summary Date of Admission Jul 30, 2024 at 16:22 Date of Discharge: Aug 02, 2024 Admitting Diagnosis Hematuria Wounds: TURP Labs/Diagnostic Data: Laboratory Results Test 07/31/24 06:46 07/28/24 12:38 White Blood Count 6.1 10^3/uL (4.4-10.8) Red Blood Count 3.60 10^6/uL (4.5-5.90) Hemoglobin 11.5 g/dL (13.5-17.5) Hematocrit 35.0 % (41.0-53.0) Mean Corpuscular Volume 97.2 fL (80.0-100.0) Mean Corpuscular Hemoglobin 31.8 pg (28.0-32.0) Mean Corpuscular Hemoglobin Concent 32.8 g/dL (32.0-36.0) Red Cell Distribution Width 15.8 % (11.8-14.3) Platelet Count 112 10^3/uL (140-450) Mean Platelet Volume 8.3 fL (6.9-10.8) Neutrophils (%) (Auto) 79.2 % (37.0-80.0) Lymphocytes (%) (Auto) 12.4 % (10.0-50.0) Monocytes (%) (Auto) 8.3 % (0.0-12.0) Eosinophils (%) (Auto) 0.0 % (0.0-7.0) Basophils (%) (Auto) 0.1 % (0.0-2.0) Neutrophils # (Auto) 4.8 10 ^3/uL (1.6-8.6) Lymphocytes # (Auto) 0.8 10 ^3/uL (0.4-5.4) Monocytes # (Auto) 0.5 10 ^3/uL (0-1.3) Eosinophils # (Auto) 0 10 ^3/uL (0-0.8) Basophils # (Auto) 0 10 ^3/uL (0-0.2) Nucleated Red Blood Cells 0.0 % Sodium Level 139 mmol/L (136-145) Potassium Level 4.2 mmol/L (3.5-5.1) Chloride Level 103 mmol/L (98-107) Carbon Dioxide Level 32 mmol/L (20-31) Anion Gap 4 (5-15) Blood Urea Nitrogen 23 mg/dL (9-23) Creatinine 0.78 mg/dL (0.700-1.30) Glomerular Filtration Rate Calc 87 mL/min (>90) BUN/Creatinine Ratio 29.5 (10.0-20.0) Serum Glucose 141 mg/dL (74-106) Calcium Level 9.5 mg/dL (8.7-10.4) Total Bilirubin 0.4 mg/dL (0.2-1.0) Aspartate Amino Transferase (AST) 12 U/L (13-40) Alanine Aminotransferase (ALT) 12 U/L (7-40) Alkaline Phosphatase 48 U/L (46-116) Total Protein 5.6 g/dL (5.7-8.2) Albumin 3.7 g/dL (3.2-4.8) Prothrombin Time 10.5 sec (9.3-11.8) Prothrombin Time INR 0.99 (0.9-1.15) Activated Partial Thromboplast Time 24.6 SEC (24.5-34.5) Urine Color Light-yellow (Yellow) Urine Clarity Clear (Clear) Urine pH 7.0 (5.0-9.0) Urine Specific [place] 1.010 (1.001-1.035) Urine Protein Negative (Negative) Urine Ketones Negative (Negative) Urine Blood Negative /uL (Negative) Urine Nitrite Negative (Negative) Urine Bilirubin Negative (Negative) Urine Urobilinogen Normal mg/dL (Negative) Urine Leukocyte Esterase Negative /uL (Negative) Urine RBC 1 /hpf (0 - 3) Urine Microscopic WBC 1 /HPF (0-3) Urine Squamous Epithelial Cells Few /hpf (<5) Urine Bacteria None seen /hpf (None Seen) Urine Glucose Normal mg/dL (Normal) Other Laboratory Tests 07/31/24 06:46 Brief Hx & Hospital Course: 84-year-old male underwent TURP and admitted later for hematuria underwent three-way bladder irrigation and urine has cleared. UTI treated with Rocephin being discharged home on Cipro and [place] he will follow up with Dr. Villarreal in two weeks. Patient is alert awake and vital signs are stable at the time of discharge, Consults/Reason for consult Urology Dr. Villarreal Operations or Procedures TURP Condition at Discharge: Fair Final Diagnosis/Problems List Status post TURP Hypertension: Hydralazine Hyperlipidemia Hypothyroidism UTI: Continue Rocephin: Urine cultures negative Discharge Disposition: Home Discharge Instruct/Medications Diet: Regular Activity: Light activity Activity comment: As tolerated Follow Up/Referral: Follow up with the Urology Dr. Villarreal in two weeks Medications: Cipro [place] 35 (Time taken for discharge summary 35 mts) Discharge Statement: "Patient was advised to return to the ER or call 911 if any headaches, dizziness, shortness of breath, chest pain, abdominal pain, bleeding, fevers, or worsening of medical condition. Patient was counseled about treatment plan, medications, possible side effects, patientverbalized understanding. All questions were answered to the best of my ability. This discharge took greater then 30 minutes in planning, reviewing documentation, counseling the patient, and discussing with other team members." ASSESSMENT ASSESSMENT Hospital Course Uneventful Assessment Status post TURP Hypertension: Hydralazine Hyperlipidemia Hypothyroidism UTI: Continue Rocephin: Urine cultures negative Date of Service: Aug 02, 2024 Billing Provider: DERIK PARRISH MD Common Visit Codes: [id number] DISCH DAY >30min DERIK PARRISH MD Aug 02, 2024 10:07
[2024-08-02 13:00] VITALS: BP 137/67; PULSE 64; RESP 16; TEMP 98; O2SAT 95
== END 2024-08-02 16:00 | disposition home or self-care (01) | DRG 666 ==
LOC: SUR 08:15 → OVERFLOW 16:22 → CENTRAL 17:35
PROVIDERS: ADMIT Family Medicine; ATTEND Family Medicine
PROC: 0TBC8ZZ Excision of Bladder Neck, Via Natural or Artificial Opening Endoscopic (ICD-10-PCS; principal; 2024-07-30 09:14)
PROC: 0VB08ZZ Excision of Prostate, Via Natural or Artificial Opening Endoscopic (ICD-10-PCS; 2024-07-30 09:14)
DX: N13.8 Other obstructive and reflux uropathy (principal); N39.0 Urinary tract infection, site not specified; N40.1 Benign prostatic hyperplasia with lower urinary tract symptoms; N32.0 Bladder-neck obstruction; E03.9 Hypothyroidism, unspecified; E78.5 Hyperlipidemia, unspecified; R31.9 Hematuria, unspecified; I10 Essential (primary) hypertension; Z90.79 Acquired absence of other genital organ(s)
CPT/HCPCS: 36415; 71045; 80053; 81001; 85025; 85610; 85730; 87086; G0378; J1100; J2250; J2405; J2704; J3490

== ENCOUNTER → 2024-09-22 | Outpatient (CLI) | payer OTHER ==
[~2024-09-22] MED LIST changes: +CIPR-173 PO; +HYDR-4902 PO
[2024-09-22 11:48] LABS: Basophils # (auto) 0 10 ^3/uL (0-0.2); Basophils % (auto) 0.3 % (0.0-2.0); Eosinophils # (auto) 0.3 10 ^3/uL (0-0.8); Eosinophils % (auto) 6.1 % (0.0-7.0); Hematocrit 36.9 % (41.0-53.0); Hemoglobin 12.5 g/dL (13.5-17.5); Lymphocytes # (auto) 0.9 10 ^3/uL (0.4-5.4); Lymphocytes % (auto) 16.6 % (10.0-50.0); Mean Corpuscular Hgb Conc. 33.7 g/dL (32.0-36.0); Mean Corpuscular Volume 94.9 fL (80.0-100.0); Monocytes # (auto) 0.6 10 ^3/uL (0-1.3); Neutrophils # (auto) 3.6 10 ^3/uL (1.6-8.6); Platelet Count (auto) 147 10^3/uL (140-450); Red Blood Cells 3.89 10^6/uL (4.5-5.90); Red Cell Distribution Width 14.6 % (11.8-14.3); White Blood Cell 5.5 10^3/uL (4.4-10.8)
[2024-09-22 12:10] LABS: Creatinine, Urine 38.14 mg/dL (30.0-125.0)
[2024-09-22 12:13] LABS: % Iron Saturation 17.9 % (20-55)
[2024-09-22 12:17] LABS: Folate (Folic Acid) 18.63 ng/mL (>5.38)
== END | disposition home or self-care (01) ==
LOC: LAB 11:28
PROVIDERS: ATTEND Internal Medicine
DX: I10 Essential (primary) hypertension (principal); D64.9 Anemia, unspecified; Z00.00 Encounter for general adult medical examination without abnormal findings
CPT/HCPCS: 36415; 82043; 82570; 82607; 82728; 82746; 83540; 83550; 85025